=== PATIENT | female | born 1970 | race Caucasian/White ===

== ENCOUNTER 2017-08-12 18:25 | Inpatient (IN) ==
[2017-08-12] MEDS ORDERED: 0.9 % Sodium Chloride 1,000 ML IVC ONE (18:34)
[2017-08-12] MEDS ORDERED: Isovue-370 500 ML INFUS..BTL IV ONE (18:36)
[2017-08-12] MEDS ORDERED: Ondansetron 4 MG/2 ML VIAL IVP ONE (18:40)
[2017-08-12] MEDS ORDERED: *HR* FentaNYL (PF) 100 MCG/2 ML VIAL IVP ONE (18:40)
--- NOTE | 2017-08-12 18:42 | Emergency Department Note ---
Disposition Referrals: Dixon Polk MD [Primary Care Provider] - Abdominal Pain HPI - General Chief Complaint: ED Abdominal Pain Stated Complaint: Abdominal Pain Time Seen by Provider: 08/12/17 18:30 Source: patient, EMS Mode of arrival: ambulatory Limitations: no limitations Nursing Notes Reviewed: Yes Vital Signs Reviewed: Yes - History of Present Illness Pt Subjective Complaint: abdominal pain Onset (ago): hour(s) Consistency: Worsening Location: suprapubic Pain Severity: severe Pain Scale: 10 Quality: stabbing, sharp Radiation: none Migration to: no migration Improves with: nothing Worsens with: nothing Associated symptoms: Reports: fever, chills. Denies: nausea, vomiting, diarrhea , constipation, anorexia Treatments prior to arrival: none - Related Data Home Medications Medication Instructions Recorded Confirmed Aspirin 81 mg PO DAILY 06/22/15 08/07/17 Isosorbide MONOnitrate (24 HR) 30 mg PO DAILY 06/22/15 08/07/17 [Imdur] Simvastatin [Zocor] 40 mg PO HS 06/22/15 08/07/17 ALPRAZolam [Xanax 0.5 MG Tablet] 0.5 mg PO TID 01/28/16 08/07/17 Albuterol Sulfate [Proair Hfa] 2 puff IH Q4H PRN 01/28/16 08/07/17 Amitriptyline [Elavil] 25 - 50 mg PO HS 01/28/16 08/07/17 Ascorbic Acid [Vitamin C] 250 mg PO BID 01/28/16 08/07/17 Butalb/Acetaminophen/Caffeine 1 each PO Q8H PRN 01/28/16 08/07/17 [Zebutal 50-325-40 mg Capsule] Cyclobenzaprine HCl 10 mg PO TID PRN 01/28/16 08/07/17 Divalproex Sodium [Depakote] 250 mg PO BID 01/28/16 08/07/17 Docusate [Colace] 100 mg PO BID PRN 01/28/16 08/07/17 Ferrous Sulfate 325 mg PO BID 01/28/16 08/07/17 Ipratropium [ATROVENT Inhaler] 2 puff IH Q6HR PRN 01/28/16 08/07/17 Lactulose 15 gm PO DAILY PRN 01/28/16 08/07/17 Lisinopril [Zestril] 10 mg PO DAILY 01/28/16 08/07/17 Meclizine [Antivert] 25 mg PO BID PRN 01/28/16 08/07/17 Metformin HCl [Glucophage] 1,000 mg PO BID 01/28/16 08/07/17 Potassium Chloride 20 meq PO DAILY 01/28/16 08/07/17 Ranolazine [Ranexa] 500 mg PO BID 01/28/16 08/07/17 Ropinirole HCl [Requip] 0.5 - 1 mg PO HS 01/28/16 08/07/17 SUMAtriptan Succinate [Imitrex] 100 mg PO ONCE PRN 01/28/16 08/07/17 Topiramate [Topamax] 25 - 50 mg PO HS 01/28/16 08/07/17 Wheat Dextrin [Benefiber] 1 each PO DAILY PRN 01/28/16 08/07/17 Gabapentin [Neurontin] 300 mg PO TID 08/07/17 08/07/17 Ibuprofen [Motrin] 600 mg PO Q8H PRN 08/07/17 08/07/17 Loratadine [Claritin] 10 mg PO DAILY 08/07/17 08/07/17 Metoprolol [Lopressor] 12.5 mg PO BID 08/07/17 08/07/17 Omeprazole [PriLOSEC] 40 mg PO DAILY 08/07/17 08/07/17 Polyethylene Glycol 3350 [MiraLAX] 17 gm PO DAILY 08/07/17 08/07/17 Previous Rx's Medication Instructions Recorded Acetaminophen [Tylenol] 500 mg PO Q6HR PRN #20 tablet 03/23/17 Promethazine [Phenergan] 12.5 mg PO Q8HR PRN #10 tablet 03/23/17 Allergies Allergy/AdvReac Type Severity Reaction Status Date / Time losartan AdvReac Hives Verified 08/12/17 18:32 Oxycodone [From OxyContin] AdvReac Nausea Verified 08/12/17 18:32 Penicillins [PCN] AdvReac Swelling Verified 08/12/17 18:32 of the Eye Abdominal Pain PMH - Past Medical History Medical history: Reports: arthritis, diabetes, GERD, hyperlipidemia, hypertension, migraine, other Female Surgical History: Reports: appendectomy, cholecystectomy 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, other Psychiatric history: Reports: anxiety, bipolar, depression - Social History Smoking status: Current every day smoker Alcohol use: Reports: none Drug use: Reports: none Physical Exam - General Limitations: no limitations General appearance: alert Course Vital Signs Temperature 99.1 F 08/12/17 18:33 Pulse Rate 111 08/12/17 18:33 Respiratory Rate 20 08/12/17 18:33 Blood Pressure 115/78 08/12/17 18:33 O2 Sat by Pulse Oximetry 93 08/12/17 18:33 Temperature 99.1 F 08/12/17 18:33 Pulse Rate 111 08/12/17 18:33 Respiratory Rate 20 08/12/17 18:33 Blood Pressure 115/78 08/12/17 18:33 O2 Sat by Pulse Oximetry 93 08/12/17 18:33 Oxygen Delivery Oxygen Delivery Room Air
--- NOTE | 2017-08-12 18:47 | Emergency Department Note ---
Disposition Clinical Impression: Rectovaginal fistula, Abscess Abdominal pain Qualifiers: Abdominal location: lower abdomen, unspecified Qualified Code(s): R10.30 - Lower abdominal pain, unspecified Disposition: Admitted As Inpatient Condition: Fair Referrals: Dixon Polk MD [Primary Care Provider] - Forms: ED Satisfaction Letter, Work/School Release Time of Disposition: 21:44 Abdominal Pain HPI - General Chief Complaint: ED Abdominal Pain Stated Complaint: Abdominal Pain Time Seen by Provider: 08/12/17 18:30 Source: patient, EMS Mode of arrival: ambulatory Limitations: no limitations Nursing Notes Reviewed: Yes Vital Signs Reviewed: Yes - History of Present Illness HPI Narrative: Patient is a 46-year-old female who presents to [facility] ED with a chief complaint of lower abdominal pain. States her symptoms started worsening this morning when she woke up. She had a LEEP procedure done by Dr. Ibarra on 08/07/2017. Denies any nausea, vomiting. Admits to fever and chills up to a temperature of 100 degrees. Denies any chest pain, difficulty breathing , problems with urination. States she has not had a bowel movement since prior to her procedure. States she did have some mild discomfort after her initial procedure but nothing like this. Denies any foul-smelling vaginal discharge. States she still has a little bit of brown vaginal discharge. Pt Subjective Complaint: abdominal pain Onset (ago): hour(s) Consistency: Worsening Location: suprapubic Pain Severity: severe Pain Scale: 10 Quality: stabbing, sharp Migration to: no migration Improves with: nothing Worsens with: nothing Associated symptoms: Reports: fever, chills. Denies: nausea, vomiting, diarrhea , constipation, anorexia - Related Data Home Medications Medication Instructions Recorded Confirmed Aspirin 81 mg PO DAILY 06/22/15 08/07/17 Isosorbide MONOnitrate (24 HR) 30 mg PO DAILY 06/22/15 08/07/17 [Imdur] Simvastatin [Zocor] 40 mg PO HS 06/22/15 08/07/17 ALPRAZolam [Xanax 0.5 MG Tablet] 0.5 mg PO TID 01/28/16 08/07/17 Albuterol Sulfate [Proair Hfa] 2 puff IH Q4H PRN 01/28/16 08/07/17 Amitriptyline [Elavil] 25 - 50 mg PO HS 01/28/16 08/07/17 Ascorbic Acid [Vitamin C] 250 mg PO BID 01/28/16 08/07/17 Butalb/Acetaminophen/Caffeine 1 each PO Q8H PRN 01/28/16 08/07/17 [Zebutal 50-325-40 mg Capsule] Cyclobenzaprine HCl 10 mg PO TID PRN 01/28/16 08/07/17 Divalproex Sodium [Depakote] 250 mg PO BID 01/28/16 08/07/17 Docusate [Colace] 100 mg PO BID PRN 01/28/16 08/07/17 Ferrous Sulfate 325 mg PO BID 01/28/16 08/07/17 Ipratropium [ATROVENT Inhaler] 2 puff IH Q6HR PRN 01/28/16 08/07/17 Lactulose 15 gm PO DAILY PRN 01/28/16 08/07/17 Lisinopril [Zestril] 10 mg PO DAILY 01/28/16 08/07/17 Meclizine [Antivert] 25 mg PO BID PRN 01/28/16 08/07/17 Metformin HCl [Glucophage] 1,000 mg PO BID 01/28/16 08/07/17 Potassium Chloride 20 meq PO DAILY 01/28/16 08/07/17 Ranolazine [Ranexa] 500 mg PO BID 01/28/16 08/07/17 Ropinirole HCl [Requip] 0.5 - 1 mg PO HS 01/28/16 08/07/17 SUMAtriptan Succinate [Imitrex] 100 mg PO ONCE PRN 01/28/16 08/07/17 Topiramate [Topamax] 25 - 50 mg PO HS 01/28/16 08/07/17 Wheat Dextrin [Benefiber] 1 each PO DAILY PRN 01/28/16 08/07/17 Gabapentin [Neurontin] 300 mg PO TID 08/07/17 08/07/17 Ibuprofen [Motrin] 600 mg PO Q8H PRN 08/07/17 08/07/17 Loratadine [Claritin] 10 mg PO DAILY 08/07/17 08/07/17 Metoprolol [Lopressor] 12.5 mg PO BID 08/07/17 08/07/17 Omeprazole [PriLOSEC] 40 mg PO DAILY 08/07/17 08/07/17 Polyethylene Glycol 3350 [MiraLAX] 17 gm PO DAILY 08/07/17 08/07/17 Previous Rx's Medication Instructions Recorded Acetaminophen [Tylenol] 500 mg PO Q6HR PRN #20 tablet 03/23/17 Promethazine [Phenergan] 12.5 mg PO Q8HR PRN #10 tablet 03/23/17 Allergies Allergy/AdvReac Type Severity Reaction Status Date / Time losartan AdvReac Hives Verified 08/12/17 18:32 Oxycodone [From OxyContin] AdvReac Nausea Verified 08/12/17 18:32 Penicillins [PCN] AdvReac Swelling Verified 08/12/17 18:32 of the Eye All systems ED: reviewed and negative except as stated. 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 ligation, other Psychiatric history: Reports: anxiety, bipolar, depression - Social History Smoking status: Current every day smoker Alcohol use: Reports: none Drug use: Reports: none Physical Exam - General Limitations: no limitations General appearance: alert - Head Head exam: atraumatic, normocephalic, normal inspection - Eye Eye exam: Present: normal appearance, EOMI - ENT ENT exam: normal exam, normal oropharynx - Neck Neck exam: Present: normal inspection, full ROM, trachea midline - Chest Chest inspection: Present: normal inspection, symmetric chest wall rise - Respiratory Respiratory exam: Present: normal lung sounds bilaterally - Cardiovascular Cardiovascular exam: Present: normal rhythm, tachycardia - Abdominal Exam Abdominal exam: Present: soft, tenderness, normal bowel sounds. Absent: distention, guarding, rebound, rigidity Abdominal tenderness: Present: suprapubic, diffuse, severe - Extremities Exam Extremities exam: Present: normal inspection, full ROM. Absent: tenderness, pedal edema - Back Exam Back exam: Present: normal inspection, full ROM. Absent: tenderness - Neurological Exam Neurological exam: Present: alert, oriented X3 - Psychiatric Psychiatric exam: Present: normal affect, normal mood - Skin Skin exam: Present: warm, dry, intact, normal color Course Course Narrative: Patient seen and examined. Lower abdominal pain status post having a LEEP procedure done by Dr. Ibarra on 08/07/2017. Patient woke up this morning with severe worsening abdominal pain and low-grade fever. Lab work, CT with IV contrast, pelvic exam along with vaginal cultures ordered. - Reevaluation(s) Reevaluation #1: Labwork shows a leukocytosis of 18. With her being tachycardic and with a fever , we will go ahead and start him on antibiotics including Cipro, Flagyl, clindamycin. Pelvic exam was done which showed black/brownish fluid. CT of the abdomen and pelvis showed signs of possible rectal vaginal fistula, possible abscess. I discussed these findings with the on-call DAY CARE ASSISTANT surgical orderly Cheryl Rod who discussed this with the DAY CARE ASSISTANT physician Dr. Rodriguez who states they cannot take care of of rectovaginal fistulas and this needs to go north to the [facility]. I discussed with the transfer center. Time: 21:02 Reevaluation #2: We decided to discuss with our surgery soil conservation aide to see if they would be able to take care of the rectovaginal fistula. The surgeon Dr. Castellano was consulted and states she will admit the patient under her service to continue antibiotics until the infection calls down and she is able to do surgery. I had discussed with the radiologist to clarify the CT scan. States there is extremely poor delineation between the rectum and vaginal solitario and there is a lot of inflammation surrounding the entire area. States this is a grossly abnormal exam and he suspects there will need some sort of intervention. I also discussed these results with Dr. Castellano. Time: 21:47 Vital Signs Temperature 99.1 F 08/12/17 18:33 Pulse Rate 111 08/12/17 18:33 Respiratory Rate 20 08/12/17 18:33 Blood Pressure 115/78 08/12/17 18:33 O2 Sat by Pulse Oximetry 93 08/12/17 18:33 Temperature 101.9 F H 08/12/17 19:52 Pulse Rate 103 08/12/17 19:52 Respiratory Rate 20 08/12/17 19:52 Blood Pressure 132/76 08/12/17 19:52 O2 Sat by Pulse Oximetry 92 08/12/17 19:52 Oxygen Delivery Oxygen Delivery Room Air Abdominal Pain - MDM Narrative Medical decision making narrative: This documentation is done with the assistance of Dragon dictation. Despite efforts made to ensure accuracy, there may be inaccuracies in egg candler or spelling and typographical errors. I examined this patient and my medical decision-making was reviewed with the Resident Physician. I agree with the documented findings, disposition and treatment plan as described except to the extent set forth below. Patient seen and evaluated by Dr. Barfield and myself, I agree with her evaluation management plan , supervise care the patient outstay. Patient's a LEEP procedure done here by Dr. Ibarra plan this is been done in the last week now. Having some episodes of some discharge pain and possible fever. N do a pelvic on her see if there is any lesions or bleeding and then we will consider further workup along with consult with OB. Abdomen/Pelvis CT 08/12/17 18:36 IMPRESSION: Abnormal inflammatory process within the pelvis. Rectovaginal fistula is suspected. Developing abscess is also suspected. Underlying malignancy is not excluded. D/ / 08/12/2017 20:40:28 Cristopher Zapata MD / alexandrea Interpreting Provider: Cristopher Zapata MD 2043 hrs.: Speaking with DAY CARE ASSISTANT. Patient will need admission with their consult and possible surgery. Started on IV antibiotics here. Patient's agreeing to this plan. 2049 hrs.: Spoke with DAY CARE ASSISTANT did not think this is beyond their capabilities to handle this here and prefer her to be transferred. Were going to talk to the patient about where she might want to be transferred to in [place] and then OB/ EMPLOYEE REPRESENTATIVE's clinic and speak with her also. - Medical Records Medical records reviewed: Yes I reviewed the patient's medical records. - Lab Data Lab results reviewed: Yes I reviewed the patient's lab results. Result diagrams: 08/12/17 18:50 08/12/17 18:50 Lab Results 08/12/17 08/12/17 08/12/17 Range/Units 18:50 18:50 18:50 WBC 18.2 H (4.3-11.1) K/mcL RBC 3.84 (3.82-4.97) M/mcL Hgb 12.0 (11.5-15.4) g/dL Hct 36.0 (35.3-44.9) % MCV 93.8 (83.0-100.0) fL MCH 31.3 (28.0-33.3) pg MCHC 33.3 (31.6-35.5) g/dL RDW 14.8 H (11.5-14.5) % Plt Count 259 (140-400) K/mcL MPV 10.3 (9.4-12.4) fL Immature Gran % 1.4 (0-4) % Seg Neutrophils % 72.4 % Lymphocytes % 19.8 % Monocytes % 5.7 % Eosinophils % 0.5 % Basophils % 0.2 % Neutrophils # 13.2 H (1.6-8.9) K/mcL Lymphocytes # 3.6 (0.6-4.6) K/mcL Monocytes # 1.0 (0.0-1.3) K/mcL Eosinophils # 0.1 (0.0-0.6) K/mcL Basophils # 0.0 (0.0-0.2) K/mcL Nucleated RBCs/100 WBC 0.1 H (0) /100 WBC Sodium 129 L (136-145) mEq/L Potassium 4.1 (3.5-5.1) mEq/L Chloride 98 (98-107) mEq/L Carbon Dioxide 25 (23-29) mEq/L BUN 6 (6-20) mg/dL Creatinine 0.86 (0.60-1.20) mg/dL Est GFR ( Amer) > 60 (> 60) Est GFR (Non-Af Amer) > 60 (> 60) BUN/Creatinine Ratio 7 (6-26) Glucose 184 H (70-105) mg/dL Calculated Osmolality 270 L (280-300) Lactic Acid 2.0 (0.5-2.2) mmol/L Calcium 9.1 (8.6-10.3) mg/dL Total Bilirubin 0.5 (0.3-1.0) mg/dL Direct Bilirubin 0.2 (0.0-0.2) mg/dL Indirect Bilirubin 0.3 (0.0-1.2) mg/dL AST 30 (13-39) Units/L ALT 27 (7-52) Units/L Alkaline Phosphatase 143 H (34-104) Units/L Serum Total Protein 6.7 (6.4-8.9) g/dL Albumin 3.6 (3.5-5.7) g/dL Globulin 3.1 (2.4-3.5) g/dL Albumin/Globulin Ratio 1.2 (1.1-2.2) Urine Color (Yellow) Urine Clarity (Clear) Urine pH (5.0-8.0) pH Units Ur Specific [place] (1.010-1.025) Urine Protein (Neg-Trace) mg/dL Urine Glucose (UA) (Normal) mg/dL Urine Ketones (Negative) mg/dL Urine Blood (Negative) Urine Nitrite (Negative) Urine Bilirubin (Negative) Urine Urobilinogen (Normal) mg/dL Ur Leukocyte Esterase (Negative) Urine Microscopic RBC (0-3) per hpf Urine Microscopic WBC (0-3) per hpf Ur Squamous Epith Cells (None-Few) per lpf Urine Bacteria (None-Few) per hpf Hyaline Casts (None-Few) per lpf Ur Culture Indicated? (NO) Urine Test (Negative) Liz species DNA (Not Detect) Gardnerella DNA Probe (Not Detect) Trichomonas DNA Probe (Not Detect) 08/12/17 08/12/17 08/12/17 Range/Units 19:25 19:26 19:48 WBC (4.3-11.1) K/mcL RBC (3.82-4.97) M/mcL Hgb (11.5-15.4) g/dL Hct (35.3-44.9) % MCV (83.0-100.0) fL MCH (28.0-33.3) pg MCHC (31.6-35.5) g/dL RDW (11.5-14.5) % Plt Count (140-400) K/mcL MPV (9.4-12.4) fL Immature Gran % (0-4) % Seg Neutrophils % % Lymphocytes % % Monocytes % % Eosinophils % % Basophils % % Neutrophils # (1.6-8.9) K/mcL Lymphocytes # (0.6-4.6) K/mcL Monocytes # (0.0-1.3) K/mcL Eosinophils # (0.0-0.6) K/mcL Basophils # (0.0-0.2) K/mcL Nucleated RBCs/100 WBC (0) /100 WBC Sodium (136-145) mEq/L Potassium (3.5-5.1) mEq/L Chloride (98-107) mEq/L Carbon Dioxide (23-29) mEq/L BUN (6-20) mg/dL Creatinine (0.60-1.20) mg/dL Est GFR ( Amer) (> 60) Est GFR (Non-Af Amer) (> 60) BUN/Creatinine Ratio (6-26) Glucose (70-105) mg/dL Calculated Osmolality (280-300) Lactic Acid (0.5-2.2) mmol/L Calcium (8.6-10.3) mg/dL Total Bilirubin (0.3-1.0) mg/dL Direct Bilirubin (0.0-0.2) mg/dL Indirect Bilirubin (0.0-1.2) mg/dL AST (13-39) Units/L ALT (7-52) Units/L Alkaline Phosphatase (34-104) Units/L Serum Total Protein (6.4-8.9) g/dL Albumin (3.5-5.7) g/dL Globulin (2.4-3.5) g/dL Albumin/Globulin Ratio (1.1-2.2) Urine Color Dark Yellow (Yellow) Urine Clarity Cloudy A (Clear) Urine pH 7.0 (5.0-8.0) pH Units Ur Specific [place] 1.013 (1.010-1.025) Urine Protein Trace (Neg-Trace) mg/dL Urine Glucose (UA) Normal (Normal) mg/dL Urine Ketones Negative (Negative) mg/dL Urine Blood Small H (Negative) Urine Nitrite Negative (Negative) Urine Bilirubin Negative (Negative) Urine Urobilinogen 4.0 H (Normal) mg/dL Ur Leukocyte Esterase Large H (Negative) Urine Microscopic RBC 3-5 H (0-3) per hpf Urine Microscopic WBC TNTC H (0-3) per hpf Ur Squamous Epith Cells Many H (None-Few) per lpf Urine Bacteria Many H (None-Few) per hpf Hyaline Casts None Seen (None-Few) per lpf Ur Culture Indicated? NO. A (NO) Urine Test Negative (Negative) Liz species DNA Not Detected (Not Detect) Gardnerella DNA Probe DETECTED A (Not Detect) Trichomonas DNA Probe Not Detected (Not Detect) - Radiology Data Radiology results reviewed: Yes I reviewed the patient's radiology results. Abdomen/Pelvis CT 08/12/17 18:36
[2017-08-12 19:06] LABS: Basophils % 0.2 %; Eosinophils # 0.1 K/mcL (0.0-0.6); Eosinophils % 0.5 %; Immature Granulocytes % 1.4 % (0-4); Lymphocytes # 3.6 K/mcL (0.6-4.6); Lymphocytes % 19.8 %; Mean Corpuscular HGB Conc 33.3 g/dL (31.6-35.5); Mean Corpuscular Hemoglobin 31.3 pg (28.0-33.3); Mean Corpuscular Volume 93.8 fL (83.0-100.0); Mean Platelet Volume 10.3 fL (9.4-12.4); Monocytes % 5.7 %; Neutrophils # 13.2 K/mcL (1.6-8.9); Nucleated Red Blood Cells 0.1 /100 WBC (0); Platelet Count 259 K/mcL (140-400); Red Blood Count 3.84 M/mcL (3.82-4.97); Red Cell Distribution Width 14.8 % (11.5-14.5); Segmented Neutrophils % 72.4 %
[2017-08-12 19:23] LABS: Alanine Aminotransferase 27 Units/L (7-52); Albumin 3.6 g/dL (3.5-5.7); Albumin/Globulin Ratio 1.2 (1.1-2.2); Alkaline Phosphatase 143 Units/L (34-104); Aspartate Amino Transferase 30 Units/L (13-39); BUN/Creatinine Ratio 7 (6-26); Bilirubin,Direct 0.2 mg/dL (0.0-0.2); Bilirubin,Indirect 0.3 mg/dL (0.0-1.2); Bilirubin,Total 0.5 mg/dL (0.3-1.0); Blood Urea Nitrogen 6 mg/dL (6-20); Calcium 9.1 mg/dL (8.6-10.3); Carbon Dioxide 25 mEq/L (23-29); Chloride 98 mEq/L (98-107); Globulin 3.1 g/dL (2.4-3.5); Glucose 184 mg/dL (70-105); Osmolality,Calculated 270 (280-300); Potassium 4.1 mEq/L (3.5-5.1); Sodium 129 mEq/L (136-145); Total Protein 6.7 g/dL (6.4-8.9); eGFR For African Americans > 60 (> 60); eGFR For Non-African Americans > 60 (> 60)
[2017-08-12 19:39] LABS: Bilirubin,Urine Negative (Negative); Blood,Urine Small (Negative); Clarity,Urine Cloudy (Clear); Color,Urine Dark Yellow (Yellow); Glucose,Urine (UA) Normal (Normal); Ketones,Urine Negative (Negative); Leukocyte Esterase,Urine Large (Negative); Nitrite,Urine Negative (Negative); Protein,Urine Trace mg/dL (Neg-Trace); Specific Gravity,Urine 1.013 (1.010-1.025)
[2017-08-12 19:40] LABS: Bacteria,Urine Many per hpf (None-Few); Hyaline Casts,Urine None Seen per lpf (None-Few); Squamous Epithelial Cell,Urine Many per lpf (None-Few); WBC,Urine TNTC per hpf (0-3)
[2017-08-12] MEDS ORDERED: Clindamycin 900 MG/50 ML 900 MG/50 ML IV.SOLN IVPB ONE (19:53)
[2017-08-12] MEDS ORDERED: MetroNIDAZOLE 500 MG/100 ML 500 MG/100 ML BAG IVPB ONE (19:53)
[2017-08-12] MEDS ORDERED: Acetaminophen 325 MG TABLET PO ONE (19:54)
[2017-08-12 20:52] LABS: Candida DNA Not Detected (Not Detect); Gardnerella DNA ***DETECTED*** (Not Detect); Trichomonas DNA Not Detected (Not Detect)
[2017-08-12] MEDS ORDERED: *HR* HYDROmorphone (PF) 1 MG/ML SYRINGE IVP ONE (21:57)
[2017-08-12] MEDS ORDERED: *HR* Promethazine 25 MG/ML VIAL IVP PRN (23:04)
[2017-08-12] MEDS ORDERED: *HR* FentaNYL (PF) 100 MCG/2 ML VIAL IVP PRN (23:07)
[2017-08-12] MEDS: 0.9 % Sodium Chloride 1,000 ML IVC SCH (23:50)
[2017-08-12] MEDS: Divalproex (12 HR) 250 MG TABLET PO SCH (23:55)
[2017-08-12] MEDS: Gabapentin 300 MG CAPSULE PO SCH (23:55)
[2017-08-12] MEDS: *HR* Metoprolol 5 MG/5 ML VIAL IVP SCH (23:59)
[2017-08-13] MEDS: Insulin LISPRO 300 UNITS/3 ML VIAL SQ SCH ×4 (00:26→17:57)
[2017-08-13] MEDS: Acetaminophen IV 1,000 MG/100 ML INFUS..BTL IVPB SCH ×4 (01:34→20:15)
[2017-08-13] MEDS: MetroNIDAZOLE 500 MG/100 ML 500 MG/100 ML BAG IVPB SCH ×3 (03:49→20:10)
[2017-08-13] MEDS: MORPHINE SUL Oral CONC 10 MG/0.5 ML ORAL.SYG SL PRN ×2 (04:24→10:56)
[2017-08-13 04:31] LABS: Basophils # 0.1 K/mcL (0.0-0.2); Basophils % 0.3 %; Eosinophils # 0.1 K/mcL (0.0-0.6); Eosinophils % 0.6 %; Hematocrit 31.9 % (35.3-44.9); Immature Granulocytes % 1.7 % (0-4); Lymphocytes # 3.2 K/mcL (0.6-4.6); Mean Corpuscular HGB Conc 32.3 g/dL (31.6-35.5); Mean Corpuscular Hemoglobin 30.5 pg (28.0-33.3); Mean Corpuscular Volume 94.4 fL (83.0-100.0); Mean Platelet Volume 10.1 fL (9.4-12.4); Monocytes # 0.9 K/mcL (0.0-1.3); Monocytes % 6.2 %; Platelet Count 228 K/mcL (140-400); Red Blood Count 3.38 M/mcL (3.82-4.97); Red Cell Distribution Width 15.2 % (11.5-14.5); Segmented Neutrophils % 69.2 %
[2017-08-13 04:32] LABS: Hemoglobin 10.3 g/dL (11.5-15.4)
[2017-08-13 04:54] LABS: BUN/Creatinine Ratio 7 (6-26); Blood Urea Nitrogen 6 mg/dL (6-20); Calcium 8.3 mg/dL (8.6-10.3); Carbon Dioxide 25 mEq/L (23-29); Chloride 104 mEq/L (98-107); Glucose 134 mg/dL (70-105); Osmolality,Calculated 278 (280-300); Potassium 4.2 mEq/L (3.5-5.1); Sodium 134 mEq/L (136-145); eGFR For African Americans > 60 (> 60); eGFR For Non-African Americans > 60 (> 60)
[2017-08-13] MEDS: *HR* Metoprolol 5 MG/5 ML VIAL IVP SCH ×3 (05:47→17:57)
[2017-08-13] MEDS: Pantoprazole 40 MG VIAL IVP SCH (05:47)
[2017-08-13] MEDS: 0.9 % Sodium Chloride 1,000 ML IVC SCH ×2 (08:14→18:01)
[2017-08-13] MEDS: Gabapentin 300 MG CAPSULE PO SCH ×3 (08:19→20:10)
[2017-08-13] MEDS: Divalproex (12 HR) 250 MG TABLET PO SCH ×2 (08:19→20:10)
[2017-08-13] MEDS ORDERED: Ondansetron 4 MG/2 ML VIAL IVP PRN (11:49)
[2017-08-13] MEDS ORDERED: Naloxone 0.4 MG/ML INJ IVP PRN (11:49)
--- NOTE | 2017-08-13 11:56 | General Surg History&Physical ---
Date of Encounter: 08/13/17 Time of Encounter: 10:50 Assessment and Plan (1) Colitis, acute Current Visit: Yes Status: Acute The assessment and plan as outlined above was discussed with the patient and/or family members who expressed understanding and agreement. All questions were answered. CT scan personally reviewed by myself would like to get this patient over her acute episode of colitis with conservative therapy, continue cipro/flagyl wbc decreased this am serial abdominal exams ivf hydration prn pain control gi/dvt prophylaxis (2) Gardnerella vaginitis Current Visit: Yes Status: Acute The assessment and plan as outlined above was discussed with the patient and/or family members who expressed understanding and agreement. All questions were answered. discussed with chief dog license inspector nurse independent trader, matt mckinley (3) Diabetes type 2, controlled Current Visit: Yes Status: Chronic The assessment and plan as outlined above was discussed with the patient and/or family members who expressed understanding and agreement. All questions were answered. controlled with SSI, continue mbs checks Qualifiers: Diabetes mellitus classics professor insulin use: without shelter use Qualified Code(s): E11.9 - Type 2 diabetes mellitus without complications (4) HTN (hypertension) Current Visit: Yes Status: Chronic The assessment and plan as outlined above was discussed with the patient and/or family members who expressed understanding and agreement. All questions were answered. scheduled lopressor IV prn hydralazine Qualifiers: Hypertension type: essential hypertension Qualified Code(s): I10 - Essential (primary) hypertension (5) HLD (hyperlipidemia) Current Visit: Yes Status: Chronic The assessment and plan as outlined above was discussed with the patient and/or family members who expressed understanding and agreement. All questions were answered. hold po meds currently Qualifiers: Hyperlipidemia type: unspecified Qualified Code(s): E78.5 - Hyperlipidemia , unspecified (6) Migraines Current Visit: Yes Status: Acute The assessment and plan as outlined above was discussed with the patient and/or family members who expressed understanding and agreement. All questions were answered. continue depakote patient level is low but is not used to treat seizures Qualifiers: Migraine type: unspecified Status migrainosus presence: without status migrainosus Intractability: not intractable Qualified Code(s): G43.909 - Migraine, unspecified, not intractable, without status migrainosus (7) Bipolar 1 disorder Current Visit: Yes Status: Acute The assessment and plan as outlined above was discussed with the patient and/or family members who expressed understanding and agreement. All questions were answered. continue depakote History of Present Illness Chief complaint: abdominal pain HPI: Ms. Rae is a 46 year old female who underwent a leep procedure this past monday. She went home and was having pelvic pain which she expected and it appears to at one point gotten a little better. Monday she began having sharp intermittent pelvic pain. She denies nausea or emesis. She denies diarrhea and has not had a bm since last monday (a week ago). She denies passing flatus but cant tell me the last time she did. She had a tactile fever before presenting to the ED. She has had small amounts of brown vaginal drainage since her leep procedure. patient is on depakote but cannot tell me why, states has never had a seizure. She presented to the ED with abdominal pain. CT scan abdomen and pelvis showed "[place] 4d Abnormal appearance of the distal sigmoid colon with marked wall thickening and surrounding inflammatory changes. These extend into the rectal region. The vaginal cavity is inseparable from the rectum. Air is seen within the vaginal cavity with debris. Increased fluid is seen within the cul-de-sac. Subtle peripheral enhancement suggests a developing abscess. Rectovaginal fistula is suspected." WBC 18.5. Cr wnl. Vaginal exam with cultures done by ED, Gardnerella positive. Past Med Surg Social Fam HX - Past Medical History Source: patient Medical history: arthritis, diabetes, GERD, hyperlipidemia, hypertension, migraine, other Additional medical history: depression,baretts esophagus,schinic sinusitis, constipation,osteoarthritis,internal hemorrhoids,restless leg syndrome,dysphagia ,nausea,chronic pelvic pain,left lower quadrant pain,abnormal uterine bleeding, degenerative joint disease,dyslipedemia,iron deficiency,colonic polyps, bilateral carpal tunnel,borderline diabetes, diabetes type II, heart cath no stents Psychiatric history: anxiety, bipolar, depression - Past Surgical History Surgical History: appendectomy (open), cholecystectomy (lap), other (LEEP, tubal ligation) - Social History Smoking Status: Current every day smoker Packs per day: .5 Smokeless Tobacco Status: No Alcohol use: none Drug use: none - Family History Grandmother History Unknown: Yes Medications and Allergies Aspirin 81 mg PO DAILY 06/22/15 [History] Isosorbide MONOnitrate (24 HR) [Imdur] 30 mg PO DAILY 06/22/15 [History] Simvastatin [Zocor] 40 mg PO HS 06/22/15 [History] Albuterol Sulfate [Proair Hfa] 2 puff IH Q4H PRN 01/28/16 [History] Amitriptyline [Elavil] 25 - 50 mg PO HS 01/28/16 [History] Ascorbic Acid [Vitamin C] 250 mg PO BID 01/28/16 [History] Butalb/Acetaminophen/Caffeine [Zebutal 50-325-40 mg Capsule] 1 each PO Q8H PRN 01/28/16 [History] Cyclobenzaprine HCl 10 mg PO TID PRN 01/28/16 [History] Divalproex Sodium [Depakote] 250 mg PO BID 01/28/16 [History] Docusate [Colace] 100 mg PO BID PRN 01/28/16 [History] Ferrous Sulfate 325 mg PO BID 01/28/16 [History] Ipratropium [ATROVENT Inhaler] 2 puff IH Q6HR PRN 01/28/16 [History] Lactulose 15 gm PO DAILY PRN 01/28/16 [History] Lisinopril [Zestril] 10 mg PO DAILY 01/28/16 [History] Meclizine [Antivert] 25 mg PO BID PRN 01/28/16 [History] Metformin HCl [Glucophage] 1,000 mg PO BID 01/28/16 [History] Potassium Chloride 20 meq PO DAILY 01/28/16 [History] Ranolazine [Ranexa] 500 mg PO BID 01/28/16 [History] Ropinirole HCl [Requip] 0.5 - 1 mg PO HS 01/28/16 [History] SUMAtriptan Succinate [Imitrex] 100 mg PO ONCE PRN 01/28/16 [History] Topiramate [Topamax] 25 - 50 mg PO HS 01/28/16 [History] Wheat Dextrin [Benefiber] 1 each PO DAILY PRN 01/28/16 [History] Acetaminophen [Tylenol] 500 mg PO Q6HR PRN #20 tablet 03/23/17 [Rx] Promethazine [Phenergan] 12.5 mg PO Q8HR PRN #10 tablet 03/23/17 [Rx] Gabapentin [Neurontin] 300 mg PO TID 08/07/17 [History] Ibuprofen [Motrin] 600 mg PO Q8H PRN 08/07/17 [History] Loratadine [Claritin] 10 mg PO DAILY 08/07/17 [History] Metoprolol [Lopressor] 12.5 mg PO BID 08/07/17 [History] Omeprazole [PriLOSEC] 40 mg PO DAILY 08/07/17 [History] Polyethylene Glycol 3350 [MiraLAX] 17 gm PO DAILY 08/07/17 [History] 3 Allergy/AdvReac Type Severity Reaction Status Date / Time losartan AdvReac Hives Verified 08/12/17 18:32 Oxycodone [From OxyContin] AdvReac Nausea Verified 08/12/17 18:32 Penicillins [PCN] AdvReac Swelling Verified 08/12/17 18:32 of the Eye Review of Systems All systems PM: reviewed and no additional remarkable complaints except as stated All systems PM: The remainder of the systems were reviewed and are negative General Surgery Exam Initial Vital Signs Temp Pulse Resp BP Pulse Ox 99.1 F 111 20 115/78 93 08/12/17 18:33 08/12/17 18:33 08/12/17 18:33 08/12/17 18:33 08/12/17 18:33 - General physical appearance well developed, well nourished, no distress - Eyes PERRL, normal ocular movement - ENT normal mucosa, normocephalic - Neck trachea midline - Respiratory normal expansion, clear to auscultation - Cardiovascular Cardiovascular exam: Present: RRR - Abdomen Abdomen general surgery: Present: soft, tender (left sided and pelvic). Absent : bowel sounds present, distended, guarding, rebound - Integumentary Integumentary general surgery: Present: warm and dry, no abnormal pigmentation - Neurologic Present: CN 2-12 grossly intact - Musculoskeletal Present: normal posture - Psychiatric Psychiatric general surgery: Present: A&Ox3, speech is normal Results - Labs 08/13/17 04:15 08/13/17 04:15 Abnormal lab results WBC 14.5 K/mcL (4.3-11.1) H 08/13/17 04:15 RBC 3.38 M/mcL (3.82-4.97) L 08/13/17 04:15 Hgb 10.3 g/dL (11.5-15.4) L D 08/13/17 04:15 Hct 31.9 % (35.3-44.9) L 08/13/17 04:15 RDW 15.2 % (11.5-14.5) H 08/13/17 04:15 Neutrophils # 10.0 K/mcL (1.6-8.9) H 08/13/17 04:15 Nucleated RBCs/100 WBC 0.1 /100 WBC (0) H 08/12/17 18:50 Sodium 134 mEq/L (136-145) L 08/13/17 04:15 Glucose 134 mg/dL (70-105) H 08/13/17 04:15 POC Glucose 123 mg/dL (70-99) H 08/13/17 11:08 Calculated Osmolality 278 (280-300) L 08/13/17 04:15 Calcium 8.3 mg/dL (8.6-10.3) L 08/13/17 04:15 Alkaline Phosphatase 143 Units/L (34-104) H 08/12/17 18:50 Urine Clarity Cloudy (Clear) A 08/12/17 19:26 Urine Blood Small (Negative) H 08/12/17 19:26 Urine Urobilinogen 4.0 mg/dL (Normal) H 08/12/17 19:26 Ur Leukocyte Esterase Large (Negative) H 08/12/17 19:26 Urine Microscopic RBC 3-5 per hpf (0-3) H 08/12/17 19:26 Urine Microscopic WBC TNTC per hpf (0-3) H 08/12/17 19:26 Ur Squamous Epith Cells Many per lpf (None-Few) H 08/12/17 19:26 Urine Bacteria Many per hpf (None-Few) H 08/12/17 19:26 Ur Culture Indicated? NO. (NO) A 08/12/17 19:26 Valproic Acid 24 mcg/mL (50-100) L 08/13/17 04:15 Gardnerella DNA Probe DETECTED (Not Detect) A 08/12/17 19:48 Diabetes panel 08/13/17 Range/Units 04:15 Sodium 134 L (136-145) mEq/L Potassium 4.2 (3.5-5.1) mEq/L Chloride 104 (98-107) mEq/L Carbon Dioxide 25 (23-29) mEq/L BUN 6 (6-20) mg/dL Creatinine 0.84 (0.60-1.20) mg/dL Glucose 134 H (70-105) mg/dL Calcium 8.3 L (8.6-10.3) mg/dL Calcium panel 08/13/17 Range/Units 04:15 Calcium 8.3 L (8.6-10.3) mg/dL Pituitary panel 08/13/17 Range/Units 04:15 Sodium 134 L (136-145) mEq/L Potassium 4.2 (3.5-5.1) mEq/L Chloride 104 (98-107) mEq/L Carbon Dioxide 25 (23-29) mEq/L BUN 6 (6-20) mg/dL Creatinine 0.84 (0.60-1.20) mg/dL Glucose 134 H (70-105) mg/dL Calcium 8.3 L (8.6-10.3) mg/dL Adrenal panel 08/13/17 Range/Units 04:15 Sodium 134 L (136-145) mEq/L Potassium 4.2 (3.5-5.1) mEq/L Chloride 104 (98-107) mEq/L Carbon Dioxide 25 (23-29) mEq/L BUN 6 (6-20) mg/dL Creatinine 0.84 (0.60-1.20) mg/dL Glucose 134 H (70-105) mg/dL Calcium 8.3 L (8.6-10.3) mg/dL All other labs normal. - Imaging CT scan - abdomen: report reviewed, image reviewed CT scan - pelvis: report reviewed, image reviewed
[2017-08-13] MEDS: Ranolazine 500 MG TAB.ER.12H PO SCH (20:09)
[2017-08-13] MEDS: rOPINIRole 0.25 MG TABLET PO SCH (20:10)
[2017-08-13] MEDS: Topiramate 25 MG TABLET PO SCH (20:10)
[2017-08-14] MEDS: Insulin LISPRO 300 UNITS/3 ML VIAL SQ SCH ×4 (00:01→22:57)
[2017-08-14] MEDS: *HR* Metoprolol 5 MG/5 ML VIAL IVP SCH ×4 (00:02→16:22)
[2017-08-14] MEDS: Acetaminophen IV 1,000 MG/100 ML INFUS..BTL IVPB SCH ×4 (01:22→21:13)
[2017-08-14] MEDS: MetroNIDAZOLE 500 MG/100 ML 500 MG/100 ML BAG IVPB SCH ×3 (04:01→21:12)
[2017-08-14] MEDS: 0.9 % Sodium Chloride 1,000 ML IVC SCH ×3 (04:02→21:18)
[2017-08-14] MEDS: Pantoprazole 40 MG VIAL IVP SCH (05:57)
[2017-08-14] MEDS: MORPHINE SUL Oral CONC 10 MG/0.5 ML ORAL.SYG SL PRN (06:47)
[2017-08-14 06:51] LABS: Basophils % 0.3 %; Eosinophils # 0.1 K/mcL (0.0-0.6); Eosinophils % 1.1 %; Hematocrit 32.2 % (35.3-44.9); Hemoglobin 10.4 g/dL (11.5-15.4); Immature Granulocytes % 1.8 % (0-4); Lymphocytes # 2.1 K/mcL (0.6-4.6); Lymphocytes % 17.5 %; Mean Corpuscular HGB Conc 32.3 g/dL (31.6-35.5); Mean Corpuscular Hemoglobin 31.6 pg (28.0-33.3); Mean Corpuscular Volume 97.9 fL (83.0-100.0); Mean Platelet Volume 10.1 fL (9.4-12.4); Monocytes # 0.7 K/mcL (0.0-1.3); Neutrophils # 8.8 K/mcL (1.6-8.9); Platelet Count 222 K/mcL (140-400); Red Blood Count 3.29 M/mcL (3.82-4.97); Red Cell Distribution Width 15.3 % (11.5-14.5); Segmented Neutrophils % 73.3 %
[2017-08-14 07:11] LABS: BUN/Creatinine Ratio 7 (6-26); Blood Urea Nitrogen 5 mg/dL (6-20); Calcium 8.5 mg/dL (8.6-10.3); Carbon Dioxide 25 mEq/L (23-29); Chloride 105 mEq/L (98-107); Glucose 104 mg/dL (70-105); Magnesium 1.9 mg/dL (1.6-2.6); Osmolality,Calculated 278 (280-300); Phosphorous 3.3 mg/dL (2.7-4.5); Potassium 4.1 mEq/L (3.5-5.1); Sodium 135 mEq/L (136-145); eGFR For African Americans > 60 (> 60); eGFR For Non-African Americans > 60 (> 60)
[2017-08-14] MEDS: Divalproex (12 HR) 250 MG TABLET PO SCH ×2 (07:57→21:14)
[2017-08-14] MEDS: Ranolazine 500 MG TAB.ER.12H PO SCH ×2 (07:57→21:13)
[2017-08-14] MEDS: Gabapentin 300 MG CAPSULE PO SCH ×3 (07:57→21:13)
[2017-08-14] MEDS: Isosorbide MONOnitrate (24 HR) 30 MG TAB.ER.24H PO SCH (07:58)
--- NOTE | 2017-08-14 10:40 | General Surgery Progress Note ---
<Ruba Meyers Jose Alfredo - Last Filed: 08/14/17 10:34> Date of Encounter: 08/14/17 Time of Encounter: 10:20 - Assessment and Plan (1) Colitis, acute Current Visit: Yes Status: Acute Continue with conservative measures: Advance to clear liquids today Continue Cipro and Flagyl IV fluids Supportive care and pain control- morphine decreased to 5mg Serial abdominal exams Consider repeat CT scan of the abdomen/pelvis in the next 24-48 hours Incentive Spirometer every 1 hour while awake Ambulate hallways TID PPI therapy daily Repeat am labs- CBC, BMP (2) Gardnerella vaginitis Current Visit: Yes Status: Acute Continue Flagyl (3) Diabetes type 2, controlled Current Visit: Yes Status: Chronic Controlled Continue to monitor Will add metformin back with advancement of diet Qualifiers: 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 marine terminal use Qualified Code(s): E11.9 - Type 2 diabetes mellitus without complications (4) HTN (hypertension) Current Visit: Yes Status: Chronic Controlled Continue current medication regimen Qualifiers: Hypertension type: essential hypertension Qualified Code(s): I10 - Essential (primary) hypertension (5) HLD (hyperlipidemia) Current Visit: Yes Status: Chronic Qualifiers: Hyperlipidemia type: unspecified Qualified Code(s): E78.5 - Hyperlipidemia , unspecified (6) Migraines Current Visit: Yes Status: Chronic Continue home medication regimen Qualifiers: Migraine type: unspecified Status migrainosus presence: without status migrainosus Intractability: not intractable Qualified Code(s): G43.909 - Migraine, unspecified, not intractable, without status migrainosus (7) Bipolar 1 disorder Current Visit: Yes Status: Chronic Continue home medication regimen Subjective Patient reports: feels better, still having pain, pain is less, voiding w/o difficulty, flatus, afebrile Objective Vital Signs - Last 8 Hours Temp Pulse Resp BP Pulse Ox 08/14/17 07:29 99.2 F 88 16 123/83 97 08/14/17 03:34 98.4 F 85 16 113/75 89 Intake and Output 08/13/17 08/14/17 08/14/17 23:59 07:59 15:59 Intake Total 1200 / 1200 1400 / 1400 Output Total 0 / 0 1300 / 1300 Balance 1200 / 1200 100 / 100 Intake: IV Fluids 1200 / 1200 1400 / 1400 0.9 % Sodium Chloride 1,000 ML 1000 / 1000 1000 / 1000 @ 130 mls/hr IVC .Q7H42M [facility] Rx #:[id number] Ofirmev 1,000 mg/100 ml 1,000 100 / 100 100 / 100 mg In 100 ml @ 400 mls/hr IVPB Q6H [facility] Rx#:[id number] Cipro Premix 400 MG/200 ML 400 200 / 200 mg In 200 ml @ 200 mls/hr IVPB Q12H [facility] Rx#:[id number] Flagyl Premix 500 MG/100 ML 500 100 / 100 100 / 100 mg In 100 ml @ 100 mls/hr IVPB Q8H [facility] Rx#:[id number] Oral 0 / 0 Output: Urine 0 / 0 1300 / 1300 Other: # Voids 1 Weight 95 kg Blood Glucose* 133 96 Patient Weight 08/14/17 23:59 Weight 95 kg - General physical appearance well developed, well nourished, no distress - Eyes normal ocular movement - ENT normal mucosa, atraumatic, normocephalic - Neck Neck exam: trachea midline - Respiratory normal respiratory effort, clear to auscultation - Cardiovascular Cardiovascular exam: Present: RRR - Abdomen Abdomen: Present: bowel sounds present (hypoactive), soft, tender (improved) - Neurologic CN 2-12 grossly intact - Psychiatric oriented to time, oriented to person, oriented to place, speech is normal, memory intact - Labs 08/14/17 06:35 08/14/17 06:35 Diabetes panel 08/14/17 Range/Units 06:35 Sodium 135 L (136-145) mEq/L Potassium 4.1 (3.5-5.1) mEq/L Chloride 105 (98-107) mEq/L Carbon Dioxide 25 (23-29) mEq/L BUN 5 L (6-20) mg/dL Creatinine 0.70 (0.60-1.20) mg/dL Glucose 104 (70-105) mg/dL Calcium 8.5 L (8.6-10.3) mg/dL Calcium panel 08/14/17 Range/Units 06:35 Calcium 8.5 L (8.6-10.3) mg/dL Phosphorus 3.3 (2.7-4.5) mg/dL Pituitary panel 08/14/17 Range/Units 06:35 Sodium 135 L (136-145) mEq/L Potassium 4.1 (3.5-5.1) mEq/L Chloride 105 (98-107) mEq/L Carbon Dioxide 25 (23-29) mEq/L BUN 5 L (6-20) mg/dL Creatinine 0.70 (0.60-1.20) mg/dL Glucose 104 (70-105) mg/dL Calcium 8.5 L (8.6-10.3) mg/dL Adrenal panel 08/14/17 Range/Units 06:35 Sodium 135 L (136-145) mEq/L Potassium 4.1 (3.5-5.1) mEq/L Chloride 105 (98-107) mEq/L Carbon Dioxide 25 (23-29) mEq/L BUN 5 L (6-20) mg/dL Creatinine 0.70 (0.60-1.20) mg/dL Glucose 104 (70-105) mg/dL Calcium 8.5 L (8.6-10.3) mg/dL - VTE Documentation of Mechanical Device: Intermittent pneumatic compression device Consult Discharge Plan - Plan Referrals: Dixon Polk MD [Primary Care Provider] - - Attending Attestation For this encounter, I have reviewed the DESIGN TRANSFERRER or PA documentation, treatment plan, and medical decision making; and I have had face to face time with this patient. <Kitty Castellano - Last Filed: 08/14/17 11:55> Date of Encounter: 08/14/17 - Assessment and Plan (1) Colitis, acute Current Visit: Yes Status: Acute patient improving with conservative therapy pain much improved today, ok start clears decrease pain medication, too sleepy continue abx prn antiemetics repeat ct in 1-2 days (2) Gardnerella vaginitis Current Visit: Yes Status: Acute (3) Diabetes type 2, controlled Current Visit: Yes Status: Chronic Qualifiers: Diabetes mellitus assisted insulin use: without assisted use Qualified Code(s): E11.9 - Type 2 diabetes mellitus without complications (4) HTN (hypertension) Current Visit: Yes Status: Chronic Qualifiers: Hypertension type: essential hypertension Qualified Code(s): I10 - Essential (primary) hypertension (5) HLD (hyperlipidemia) Current Visit: Yes Status: Chronic Qualifiers: Hyperlipidemia type: unspecified Qualified Code(s): E78.5 - Hyperlipidemia , unspecified (6) Migraines Current Visit: Yes Status: Chronic Qualifiers: Migraine type: unspecified Status migrainosus presence: without status migrainosus Intractability: not intractable Qualified Code(s): G43.909 - Migraine, unspecified, not intractable, without status migrainosus (7) Bipolar 1 disorder Current Visit: Yes Status: Chronic Subjective Patient reports: no new complaints, feels better, still having pain, pain is less, voiding w/o difficulty, flatus, no bowel movement, afebrile Objective Vital Signs - Last 8 Hours Temp Pulse Resp BP Pulse Ox 08/14/17 07:29 99.2 F 88 16 123/83 97 Intake and Output 08/13/17 08/14/17 08/14/17 23:59 07:59 15:59 Intake Total 1200 / 1200 1400 / 1400 Output Total 0 / 0 1300 / 1300 Balance 1200 / 1200 100 / 100 Intake: IV Fluids 1200 / 1200 1400 / 1400 0.9 % Sodium Chloride 1,000 ML 1000 / 1000 1000 / 1000 @ 130 mls/hr IVC .Q7H42M [facility] Rx #:[id number] Ofirmev 1,000 mg/100 ml 1,000 100 / 100 100 / 100 mg In 100 ml @ 400 mls/hr IVPB Q6H [facility] Rx#:[id number] Cipro Premix 400 MG/200 ML 400 200 / 200 mg In 200 ml @ 200 mls/hr IVPB Q12H [facility] Rx#:[id number] Flagyl Premix 500 MG/100 ML 500 100 / 100 100 / 100 mg In 100 ml @ 100 mls/hr IVPB Q8H [facility] Rx#:[id number] Oral 0 / 0 Output: Urine 0 / 0 1300 / 1300 Other: # Voids 1 Weight 95 kg Blood Glucose* 133 96 Patient Weight 08/14/17 23:59 Weight 95 kg - General physical appearance well developed, well nourished, no distress, obese - Eyes PERRL, normal ocular movement - ENT normal mucosa, normocephalic - Neck Neck exam: trachea midline - Respiratory normal expansion, normal respiratory effort - Cardiovascular Cardiovascular exam: Present: RRR - Abdomen Abdomen: Present: bowel sounds present, soft, tender. Absent: distended, guarding, rebound - Integumentary no growths - Neurologic CN 2-12 grossly intact - Musculoskeletal normal posture - Psychiatric oriented to time, memory intact - Labs 08/14/17 06:35 08/14/17 06:35 Vital Signs Temp Pulse Resp BP Pulse Ox 08/14/17 07:29 99.2 F 88 16 123/83 97 08/14/17 03:34 98.4 F 85 16 113/75 89 08/13/17 23:21 98.5 F 95 16 117/77 90 08/13/17 19:45 98.0 F 94 15 114/75 92 08/13/17 15:17 99.1 F 95 15 116/75 94 Intake and Output 08/13/17 08/14/17 08/14/17 23:59 07:59 15:59 Intake Total 1200 / 1200 1400 / 1400 Output Total 0 / 0 1300 / 1300 Balance 1200 / 1200 100 / 100 Intake: IV Fluids 1200 / 1200 1400 / 1400 0.9 % Sodium Chloride 1,000 ML 1000 / 1000 1000 / 1000 @ 130 mls/hr IVC .Q7H42M [facility] Rx #:[id number] Ofirmev 1,000 mg/100 ml 1,000 100 / 100 100 / 100 mg In 100 ml @ 400 mls/hr IVPB Q6H [facility] Rx#:[id number] Cipro Premix 400 MG/200 ML 400 200 / 200 mg In 200 ml @ 200 mls/hr IVPB Q12H [facility] Rx#:[id number] Flagyl Premix 500 MG/100 ML 500 100 / 100 100 / 100 mg In 100 ml @ 100 mls/hr IVPB Q8H [facility] Rx#:[id number] Oral 0 / 0 Output: Urine 0 / 0 1300 / 1300 Other: # Voids 1 Weight 95 kg Blood Glucose* 133 96 Patient Weight 08/14/17 23:59 Weight 95 kg Short CBC 08/14/17 Range/Units 06:35 WBC 11.9 H (4.3-11.1) K/mcL Hgb 10.4 L (11.5-15.4) g/dL Hct 32.2 L (35.3-44.9) % Plt Count 222 (140-400) K/mcL Neutrophils # 8.8 (1.6-8.9) K/mcL BMP 08/14/17 Range/Units 06:35 Sodium 135 L (136-145) mEq/L Potassium 4.1 (3.5-5.1) mEq/L Chloride 105 (98-107) mEq/L Carbon Dioxide 25 (23-29) mEq/L BUN 5 L (6-20) mg/dL Creatinine 0.70 (0.60-1.20) mg/dL Glucose 104 (70-105) mg/dL Calcium 8.5 L (8.6-10.3) mg/dL - Attending Attestation I have personally performed a face to face evaluation on this patient. I have reviewed and agree with the care plan. History and Exam by me shows:
[2017-08-14] MEDS: Topiramate 25 MG TABLET PO SCH (21:13)
[2017-08-14] MEDS: rOPINIRole 0.25 MG TABLET PO SCH (21:13)
[2017-08-15] MEDS: MORPHINE SUL Oral CONC 10 MG/0.5 ML ORAL.SYG SL PRN ×3 (01:43→20:54)
[2017-08-15] MEDS: *HR* Metoprolol 5 MG/5 ML VIAL IVP SCH ×4 (02:56→18:41)
[2017-08-15] MEDS: Acetaminophen IV 1,000 MG/100 ML INFUS..BTL IVPB SCH ×4 (03:02→20:55)
[2017-08-15] MEDS: Insulin LISPRO 300 UNITS/3 ML VIAL SQ SCH ×4 (03:04→18:27)
[2017-08-15] MEDS: MetroNIDAZOLE 500 MG/100 ML 500 MG/100 ML BAG IVPB SCH ×3 (03:21→20:52)
[2017-08-15] MEDS: 0.9 % Sodium Chloride 1,000 ML IVC SCH ×3 (03:22→18:44)
[2017-08-15 06:05] LABS: Basophils % 0.2 %; Eosinophils # 0.1 K/mcL (0.0-0.6); Eosinophils % 1.2 %; Hematocrit 28.8 % (35.3-44.9); Hemoglobin 9.1 g/dL (11.5-15.4); Immature Granulocytes % 2.4 % (0-4); Lymphocytes # 2.2 K/mcL (0.6-4.6); Lymphocytes % 17.8 %; Mean Corpuscular HGB Conc 31.6 g/dL (31.6-35.5); Monocytes # 0.7 K/mcL (0.0-1.3); Monocytes % 5.8 %; Neutrophils # 8.8 K/mcL (1.6-8.9); Nucleated Red Blood Cells 0.2 /100 WBC (0); Platelet Count 229 K/mcL (140-400); Red Blood Count 3.03 M/mcL (3.82-4.97); Red Cell Distribution Width 15.6 % (11.5-14.5); Segmented Neutrophils % 72.6 %
[2017-08-15 06:22] LABS: BUN/Creatinine Ratio 5 (6-26); Blood Urea Nitrogen 3 mg/dL (6-20); Calcium 8.2 mg/dL (8.6-10.3); Carbon Dioxide 24 mEq/L (23-29); Chloride 108 mEq/L (98-107); Glucose 103 mg/dL (70-105); Osmolality,Calculated 281 (280-300); Potassium 3.5 mEq/L (3.5-5.1); Sodium 137 mEq/L (136-145); eGFR For African Americans > 60 (> 60); eGFR For Non-African Americans > 60 (> 60)
[2017-08-15] MEDS: Pantoprazole 40 MG VIAL IVP SCH (06:31)
--- NOTE | 2017-08-15 08:15 | General Surgery Progress Note ---
Date of Encounter: 08/15/17 Time of Encounter: 08:12 - Assessment and Plan (1) Colitis, acute Current Visit: Yes Status: Acute patient continues to improve daily with conservative therapy tolerated clears, start fulls decrease pain medication, too sleepy continue abx prn antiemetics repeat ct abd/pelvis with po/iv contrast tomorrow to ensure no developing intra- abdominal abscess that would potentially need IR drainage or prolonged iv abx at in will ensure patient has cipro/flagyl to complete three weeks of abx therapy follow up with me (2) Gardnerella vaginitis Current Visit: Yes Status: Acute (3) Diabetes type 2, controlled Current Visit: Yes Status: Chronic controlled continue ssi/home meds, mbs Qualifiers: Diabetes mellitus salvage determiner insulin use: without salvage determiner use Qualified Code(s): E11.9 - Type 2 diabetes mellitus without complications (4) HTN (hypertension) Current Visit: Yes Status: Chronic stable, continue home meds Qualifiers: Hypertension type: essential hypertension Qualified Code(s): I10 - Essential (primary) hypertension (5) HLD (hyperlipidemia) Current Visit: Yes Status: Chronic holding home meds Qualifiers: Hyperlipidemia type: unspecified Qualified Code(s): E78.5 - Hyperlipidemia , unspecified (6) Migraines Current Visit: Yes Status: Chronic ok to continue home meds Qualifiers: Migraine type: unspecified Status migrainosus presence: without status migrainosus Intractability: not intractable Qualified Code(s): G43.909 - Migraine, unspecified, not intractable, without status migrainosus (7) Bipolar 1 disorder Current Visit: Yes Status: Chronic continue depakote Subjective Patient reports: feels better, tolerating liquids well, voiding w/o difficulty, flatus, bowel movement, diarrhea, afebrile Objective Vital Signs - Last 8 Hours Temp Pulse Resp BP Pulse Ox 08/15/17 07:51 93 08/15/17 06:52 97.8 F 80 14 125/80 93 08/15/17 04:29 98.3 F 93 16 134/82 94 08/15/17 01:38 98.7 F 95 16 149/87 93 Intake and Output 08/14/17 08/15/17 08/15/17 23:59 07:59 15:59 Intake Total 1300 / 1300 840 / 840 Output Total 1800 / 1800 Balance 1300 / 1300 -960 / -960 Intake: IV Fluids 1200 / 1200 500 / 500 0.9 % Sodium Chloride 1,000 ML 1000 / 1000 @ 130 mls/hr IVC .Q7H42M [facility] Rx #:[id number] Ofirmev 1,000 mg/100 ml 1,000 200 / 200 100 / 100 mg In 100 ml @ 400 mls/hr IVPB Q6H [facility] Rx#:[id number] Cipro Premix 400 MG/200 ML 400 200 / 200 mg In 200 ml @ 200 mls/hr IVPB Q12H [facility] Rx#:[id number] Flagyl Premix 500 MG/100 ML 500 200 / 200 mg In 100 ml @ 100 mls/hr IVPB Q8H [facility] Rx#:[id number] Oral 100 / 100 340 / 340 Output: Urine 1800 / 1800 Other: # Voids 1 # Bowel Movements 1 Weight 90.9 kg Patient Weight 08/15/17 23:59 Weight 90.9 kg - General physical appearance well developed, well nourished, no distress - Eyes PERRL, normal ocular movement - ENT normal mucosa, normocephalic - Neck Neck exam: trachea midline - Respiratory normal expansion, normal respiratory effort - Cardiovascular Cardiovascular exam: Present: RRR - Abdomen Abdomen: Present: soft, non tender. Absent: distended - Integumentary no rash, no growths - Neurologic CN 2-12 grossly intact - Musculoskeletal normal posture - Psychiatric oriented to time, oriented to person, oriented to place, speech is normal, memory intact - Labs 08/15/17 05:49 08/15/17 05:49 Diabetes panel 08/15/17 Range/Units 05:49 Sodium 137 (136-145) mEq/L Potassium 3.5 (3.5-5.1) mEq/L Chloride 108 H (98-107) mEq/L Carbon Dioxide 24 (23-29) mEq/L BUN 3 L (6-20) mg/dL Creatinine 0.60 (0.60-1.20) mg/dL Glucose 103 (70-105) mg/dL Calcium 8.2 L (8.6-10.3) mg/dL Calcium panel 08/15/17 Range/Units 05:49 Calcium 8.2 L (8.6-10.3) mg/dL Pituitary panel 08/15/17 Range/Units 05:49 Sodium 137 (136-145) mEq/L Potassium 3.5 (3.5-5.1) mEq/L Chloride 108 H (98-107) mEq/L Carbon Dioxide 24 (23-29) mEq/L BUN 3 L (6-20) mg/dL Creatinine 0.60 (0.60-1.20) mg/dL Glucose 103 (70-105) mg/dL Calcium 8.2 L (8.6-10.3) mg/dL Adrenal panel 08/15/17 Range/Units 05:49 Sodium 137 (136-145) mEq/L Potassium 3.5 (3.5-5.1) mEq/L Chloride 108 H (98-107) mEq/L Carbon Dioxide 24 (23-29) mEq/L BUN 3 L (6-20) mg/dL Creatinine 0.60 (0.60-1.20) mg/dL Glucose 103 (70-105) mg/dL Calcium 8.2 L (8.6-10.3) mg/dL - VTE Documentation of Mechanical Device: Intermittent pneumatic compression device Consult Discharge Plan - Plan Referrals: Dixon Polk MD [Primary Care Provider] -
[2017-08-15] MEDS ORDERED: Isovue-370 500 ML INFUS..BTL IV ONE (08:17)
[2017-08-15] MEDS: Gabapentin 300 MG CAPSULE PO SCH ×3 (08:42→21:01)
[2017-08-15] MEDS: Ranolazine 500 MG TAB.ER.12H PO SCH ×2 (08:42→21:01)
[2017-08-15] MEDS: Divalproex (12 HR) 250 MG TABLET PO SCH ×2 (08:42→21:08)
[2017-08-15] MEDS: Isosorbide MONOnitrate (24 HR) 30 MG TAB.ER.24H PO SCH (08:42)
[2017-08-15] MEDS: Topiramate 25 MG TABLET PO SCH (21:01)
[2017-08-15] MEDS: rOPINIRole 0.25 MG TABLET PO SCH (21:01)
[2017-08-16] MEDS: *HR* Metoprolol 5 MG/5 ML VIAL IVP SCH ×5 (00:43→23:42)
[2017-08-16] MEDS: Acetaminophen IV 1,000 MG/100 ML INFUS..BTL IVPB SCH ×4 (02:14→20:36)
[2017-08-16] MEDS: 0.9 % Sodium Chloride 1,000 ML IVC SCH ×3 (03:28→19:00)
[2017-08-16] MEDS: Insulin LISPRO 300 UNITS/3 ML VIAL SQ SCH ×5 (04:44→23:51)
[2017-08-16] MEDS: MetroNIDAZOLE 500 MG/100 ML 500 MG/100 ML BAG IVPB SCH ×3 (05:40→19:43)
[2017-08-16] MEDS: Pantoprazole 40 MG VIAL IVP SCH (06:50)
[2017-08-16 07:14] LABS: Basophils % 0.3 %; Eosinophils # 0.2 K/mcL (0.0-0.6); Eosinophils % 1.5 %; Hematocrit 28.6 % (35.3-44.9); Hemoglobin 9.2 g/dL (11.5-15.4); Lymphocytes # 2.1 K/mcL (0.6-4.6); Lymphocytes % 18.5 %; Mean Corpuscular HGB Conc 32.2 g/dL (31.6-35.5); Mean Corpuscular Hemoglobin 30.4 pg (28.0-33.3); Mean Corpuscular Volume 94.4 fL (83.0-100.0); Monocytes # 0.7 K/mcL (0.0-1.3); Monocytes % 5.9 %; Platelet Count 222 K/mcL (140-400); Red Blood Count 3.03 M/mcL (3.82-4.97); Red Cell Distribution Width 15.8 % (11.5-14.5); Segmented Neutrophils % 69.8 %
[2017-08-16 07:34] LABS: BUN/Creatinine Ratio 4 (6-26); Blood Urea Nitrogen 2 mg/dL (6-20); Calcium 8.3 mg/dL (8.6-10.3); Carbon Dioxide 22 mEq/L (23-29); Chloride 110 mEq/L (98-107); Glucose 97 mg/dL (70-105); Osmolality,Calculated 280 (280-300); Potassium 3.5 mEq/L (3.5-5.1); Sodium 137 mEq/L (136-145); eGFR For African Americans > 60 (> 60); eGFR For Non-African Americans > 60 (> 60)
[2017-08-16] MEDS: Divalproex (12 HR) 250 MG TABLET PO SCH ×2 (08:57→20:39)
[2017-08-16] MEDS: Ranolazine 500 MG TAB.ER.12H PO SCH ×2 (08:57→20:39)
[2017-08-16] MEDS: Gabapentin 300 MG CAPSULE PO SCH ×3 (08:57→20:39)
[2017-08-16] MEDS: Isosorbide MONOnitrate (24 HR) 30 MG TAB.ER.24H PO SCH (08:57)
--- NOTE | 2017-08-16 12:32 | General Surgery Progress Note ---
Date of Encounter: 08/16/17 Time of Encounter: 12:00 - Assessment and Plan (1) Colitis, acute Current Visit: Yes Status: Acute Continue with conservative measures: Full liquids, NPO after midnight for possible IR drainage of fluid collection Consult to IR for 08/17/17 for assessment of drainage of fluid collection Continue Cipro and Flagyl IV fluids- decreased to 75ml/hour Supportive care and pain control Serial abdominal exams Incentive Spirometer every 1 hour while awake Ambulate hallways TID PPI therapy daily Repeat am labs- CBC, BMP CT results- CT/CT abd pelvis w iv and oral IMPRESSION: 1. As seen on the prior exam there is abnormal edema and soft tissue induration with inflammation at the posterior aspect of the cervix abutting the anterior colonic wall. Though a fistula is not clearly identified as suggested on the prior CT this cannot be excluded. Mild progressive loculated fluid collection in the posterior pelvic cul-de-sac measuring 4.6 cm. There is no internal gas foci to suggest an abscess. Stable secondary distal sigmoid and rectal inflammation. Mild progressive retroperitoneal inflammatory changes with some progressive mild reactive periaortic lymph nodes. 2. No bowel obstruction. (2) Gardnerella vaginitis Current Visit: Yes Status: Acute Continue Flagyl (3) Diabetes type 2, controlled Current Visit: Yes Status: Chronic Controlled Continue to monitor Will add metformin back with advancement of diet Qualifiers: Diabetes mellitus termite treater helper insulin use: without long-term use Qualified Code(s): E11.9 - Type 2 diabetes mellitus without complications (4) HTN (hypertension) Current Visit: Yes Status: Chronic Controlled Continue current medication regimen Qualifiers: Hypertension type: essential hypertension Qualified Code(s): I10 - Essential (primary) hypertension (5) HLD (hyperlipidemia) Current Visit: Yes Status: Chronic Qualifiers: Hyperlipidemia type: unspecified Qualified Code(s): E78.5 - Hyperlipidemia , unspecified (6) Migraines Current Visit: Yes Status: Chronic Continue home medication regimen Qualifiers: Migraine type: unspecified Status migrainosus presence: without status migrainosus Intractability: not intractable Qualified Code(s): G43.909 - Migraine, unspecified, not intractable, without status migrainosus (7) Bipolar 1 disorder Current Visit: Yes Status: Chronic Continue home medication regimen Subjective Patient reports: no new complaints, still having pain, pain is less, tolerating liquids well (full liquids), voiding w/o difficulty, flatus, bowel movement (08/15), afebrile Objective Vital Signs - Last 8 Hours Temp Pulse Resp BP Pulse Ox 08/16/17 11:31 97.8 F 80 15 163/97 96 08/16/17 06:32 98.1 F 81 16 150/90 93 Intake and Output 08/15/17 08/16/17 08/16/17 23:59 07:59 15:59 Intake Total 1880 / 1880 1300 / 1300 1200 / 1200 Output Total 200 / 200 Balance 1680 / 1680 1300 / 1300 1200 / 1200 Intake: IV Fluids 1400 / 1400 1100 / 1100 1200 / 1200 0.9 % Sodium Chloride 1,000 ML 1000 / 1000 1000 / 1000 1000 / 1000 @ 130 mls/hr IVC .[id number] [facility] Rx #:[id number] Ofirmev 1,000 mg/100 ml 1,000 100 / 100 100 / 100 100 / 100 mg In 100 ml @ 400 mls/hr IVPB Q6H [facility] Rx#:[id number] Cipro Premix 400 MG/200 ML 400 200 / 200 mg In 200 ml @ 200 mls/hr IVPB Q12H [facility] Rx#:[id number] Flagyl Premix 500 MG/100 ML 500 100 / 100 100 / 100 mg In 100 ml @ 100 mls/hr IVPB Q8H [facility] Rx#:[id number] Oral 480 / 480 200 / 200 Output: Urine 200 / 200 Other: Meal Dinner # Voids 1 1 Weight 90.718 kg Blood Glucose* 91 108 143 Patient Weight 08/16/17 23:59 Weight 90.718 kg - General physical appearance well developed, well nourished, no distress - Eyes normal ocular movement - ENT normal mucosa, atraumatic, normocephalic - Neck Neck exam: trachea midline - Respiratory normal respiratory effort, clear to auscultation - Cardiovascular Cardiovascular exam: Present: RRR - Abdomen Abdomen: Present: bowel sounds present, soft, tender Abdominal Tenderness: suprapubic (improving) - Neurologic CN 2-12 grossly intact - Psychiatric oriented to time, oriented to person, oriented to place, speech is normal, memory intact - Labs 08/16/17 06:52 07/04/18 06:52 Diabetes panel 08/16/17 Range/Units 06:52 Sodium 137 (136-145) mEq/L Potassium 3.5 (3.5-5.1) mEq/L Chloride 110 H (98-107) mEq/L Carbon Dioxide 22 L (23-29) mEq/L BUN 2 L (6-20) mg/dL Creatinine 0.56 L (0.60-1.20) mg/dL Glucose 97 (70-105) mg/dL Calcium 8.3 L (8.6-10.3) mg/dL Calcium panel 08/16/17 Range/Units 06:52 Calcium 8.3 L (8.6-10.3) mg/dL Pituitary panel 08/16/17 Range/Units 06:52 Sodium 137 (136-145) mEq/L Potassium 3.5 (3.5-5.1) mEq/L Chloride 110 H (98-107) mEq/L Carbon Dioxide 22 L (23-29) mEq/L BUN 2 L (6-20) mg/dL Creatinine 0.56 L (0.60-1.20) mg/dL Glucose 97 (70-105) mg/dL Calcium 8.3 L (8.6-10.3) mg/dL Adrenal panel 08/16/17 Range/Units 06:52 Sodium 137 (136-145) mEq/L Potassium 3.5 (3.5-5.1) mEq/L Chloride 110 H (98-107) mEq/L Carbon Dioxide 22 L (23-29) mEq/L BUN 2 L (6-20) mg/dL Creatinine 0.56 L (0.60-1.20) mg/dL Glucose 97 (70-105) mg/dL Calcium 8.3 L (8.6-10.3) mg/dL - VTE Documentation of Mechanical Device: Intermittent pneumatic compression device Consult Discharge Plan - Plan Referrals: Dixon Polk MD [Primary Care Provider] - - Attending Attestation For this encounter, I have reviewed the [employer] or PA documentation, treatment plan, and medical decision making; and I have had face to face time with this patient.
[2017-08-16] MEDS: rOPINIRole 0.25 MG TABLET PO SCH (20:39)
[2017-08-16] MEDS: Topiramate 25 MG TABLET PO SCH (20:39)
[2017-08-17] MEDS: Acetaminophen IV 1,000 MG/100 ML INFUS..BTL IVPB SCH ×2 (01:36→10:16)
[2017-08-17] MEDS: 0.9 % Sodium Chloride 1,000 ML IVC SCH (03:20)
[2017-08-17] MEDS: MetroNIDAZOLE 500 MG/100 ML 500 MG/100 ML BAG IVPB SCH ×2 (03:23→12:36)
[2017-08-17 04:26] LABS: Hematocrit 29.6 % (35.3-44.9); Hemoglobin 9.7 g/dL (11.5-15.4); Mean Corpuscular HGB Conc 32.8 g/dL (31.6-35.5); Mean Corpuscular Hemoglobin 31.2 pg (28.0-33.3); Mean Corpuscular Volume 95.2 fL (83.0-100.0); Mean Platelet Volume 10.3 fL (9.4-12.4); Nucleated Red Blood Cells 0.4 /100 WBC (0); Platelet Count 247 K/mcL (140-400); Red Blood Count 3.11 M/mcL (3.82-4.97); Red Cell Distribution Width 15.6 % (11.5-14.5)
[2017-08-17 04:40] LABS: BUN/Creatinine Ratio 4 (6-26); Blood Urea Nitrogen 2 mg/dL (6-20); Calcium 8.6 mg/dL (8.6-10.3); Carbon Dioxide 22 mEq/L (23-29); Chloride 108 mEq/L (98-107); Glucose 97 mg/dL (70-105); Osmolality,Calculated 280 (280-300); Potassium 3.1 mEq/L (3.5-5.1); Sodium 137 mEq/L (136-145); eGFR For African Americans > 60 (> 60); eGFR For Non-African Americans > 60 (> 60)
[2017-08-17 05:46] LABS: Lymphocytes # 1.6 K/mcL (0.6-4.6); Macrocytosis Present (Not Present); Neutrophils # 7.1 K/mcL (1.6-8.9); Platelet Estimate Normal (Normal); Polychromasia 1+ (Not Present)
[2017-08-17 05:47] LABS: Hypochromasia Present (Not Present)
[2017-08-17] MEDS: *HR* Metoprolol 5 MG/5 ML VIAL IVP SCH ×3 (06:01→17:38)
[2017-08-17] MEDS: Pantoprazole 40 MG VIAL IVP SCH ×2 (06:05→06:16)
[2017-08-17] MEDS: Insulin LISPRO 300 UNITS/3 ML VIAL SQ SCH ×2 (06:06→12:37)
[2017-08-17] MEDS: MORPHINE SUL Oral CONC 10 MG/0.5 ML ORAL.SYG SL PRN ×2 (06:14→11:52)
[2017-08-17] MEDS: Divalproex (12 HR) 250 MG TABLET PO SCH (08:34)
[2017-08-17] MEDS: Ranolazine 500 MG TAB.ER.12H PO SCH (08:34)
[2017-08-17] MEDS: Gabapentin 300 MG CAPSULE PO SCH ×2 (08:34→17:38)
[2017-08-17] MEDS: Isosorbide MONOnitrate (24 HR) 30 MG TAB.ER.24H PO SCH (08:35)
[2017-08-17 08:54] LABS: INR 1.3; Prothrombin Time 14.2 Seconds (9.4-12.1)
--- NOTE | 2017-08-17 10:53 | Discharge Summary ---
<Peyton Yates - Last Filed: 08/17/17 16:32> Orders not resulted at time of discharge: Pending orders 08/17/17 06:33 Culture,Anaerobic [RM] Routine Culture,Body Fluid [RM] Routine Date of Encounter: 08/17/17 Time of Encounter: 10:00 - Discharge Diagnosis (1) Sepsis Priority: Primary Status: Acute Qualifiers: Sepsis type: sepsis due to unspecified organism Qualified Code(s): A41.9 - Sepsis, unspecified organism (2) Abscess Priority: Primary Status: Acute (3) Colitis, acute Priority: Secondary Status: Acute (4) Gardnerella vaginitis Priority: Secondary Status: Acute (5) Diabetes type 2, controlled Priority: Secondary Status: Chronic Qualifiers: Diabetes mellitus termination clerk insulin use: without nursing home use Diabetes mellitus complication status: with unspecified complications Qualified Code(s) : E11.8 - Type 2 diabetes mellitus with unspecified complications General Surgery Exam Initial Vital Signs Temp Pulse Resp BP Pulse Ox 99.1 F 111 20 115/78 93 08/12/17 18:33 08/12/17 18:33 08/12/17 18:33 08/12/17 18:33 08/12/17 18:33 Vital Signs Temp Pulse Resp BP Pulse Ox 08/17/17 10:18 98.1 F 83 15 163/83 96 08/17/17 10:13 98.1 F 83 15 163/83 96 08/17/17 06:39 97.7 F 72 15 184/101 96 08/17/17 03:58 97.6 F 78 18 165/97 96 08/16/17 23:55 97.8 F 80 18 163/93 93 08/16/17 19:13 97.4 F L 80 17 162/95 94 08/16/17 15:30 99.0 F 88 16 170/86 94 Intake and Output 08/16/17 08/17/17 08/17/17 23:59 07:59 15:59 Intake Total 640 / 640 1200 / 1200 0 / 0 Output Total 0 / 0 500 / 500 Balance 640 / 640 1200 / 1200 -500 / -500 Intake: IV Fluids 400 / 400 1200 / 1200 0.9 % Sodium Chloride 1,000 ML 1000 / 1000 @ 75 mls/hr IVC .[id number] [facility] Rx #:[id number] Ofirmev 1,000 mg/100 ml 1,000 100 / 100 100 / 100 mg In 100 ml @ 400 mls/hr IVPB Q6H [facility] Rx#:[id number] Cipro Premix 400 MG/200 ML 400 200 / 200 mg In 200 ml @ 200 mls/hr IVPB Q12H [facility] Rx#:[id number] Flagyl Premix 500 MG/100 ML 500 100 / 100 100 / 100 mg In 100 ml @ 100 mls/hr IVPB Q8H [facility] Rx#:[id number] Oral 240 / 240 0 / 0 0 / 0 Output: Urine 0 / 0 500 / 500 Other: Meal Dinner npo Percent of Meal Consumed 100% Weight 94.8 kg Blood Glucose* 97 107 98 VITAL SIGNS: Reviewed. See [facility] GENERAL: In no apparent distress. HEENT: Normocephalic, atraumatic, pupils are equal and reactive, extraocular motions intact, oropharynx is pink and moist, there is no neck adenopathy or JVD noted. Edentulous CHEST/RESPIRATORY: The thorax is free from signs of trauma. Lung sounds: clear to auscultation, normal respiratory effort CARDIAC: Regular rate and rhythm. Normal S1 and S2, without murmurs, gallops, or rubs. VASCULAR: No Edema. 2+ peripheral pulses. ABDOMEN: soft, obese, active bowel sounds, nontender MUSCULOSKELETAL: Good range of motion of all major joints. Extremities without clubbing, cyanosis or edema. NEUROLOGIC EXAM: Alert and oriented x 3. Speech normal. Follows commands. PSYCHIATRIC: Mood normal. SKIN: No rash or lesions. - Hospital Course Hospital course: Ms. Rae is a 46 year old female who underwent a leep procedure on 08/07/2017. She went home and was having pelvic pain which she expected and it appears to at one point gotten a little better. Monday she began having sharp intermittent pelvic pain. She denies nausea or emesis. She presented to the ED with abdominal pain. CT scan abdomen and pelvis showed "Abnormal appearance of the distal sigmoid colon with marked wall thickening and surrounding inflammatory changes. These extend into the rectal region. The vaginal cavity is inseparable from the rectum. Air is seen within the vaginal cavity with debris. Increased fluid is seen within the cul-de-sac. Subtle peripheral enhancement suggests a developing abscess. Rectovaginal fistula is suspected." WBC 18.5. Cr wnl. Vaginal exam with cultures done by ED, Gardnerella positive. She was treated with bowel rest and IV antibiotics. On 08/16/2017, a TT of the abdomen and pelvis with oral and IV contrast was completed which noted no internal gas foci to suggest an abscess, stable life chelated fluid collection in the posterior pelvis measuring 4.6 cm, and distal sigmoid and rectal inflammation, no bowel obstruction noted. A consult was placed to interventional radiology for possible drain placement versus aspiration. Interventional radiology did not feel the benefit of the procedure outweighed the risk given that the patient's white blood cell count had normalized and her symptoms were nonspecific. Infectious disease was consult did for antibiotic recommendations and outpatient management of pelvic abscess and recommended IV antibitotics at d/c. Time spent discussing smoking cessation with patient: 3 to 10 minutes - Time Spent with Patient Total time spent providing and/or coordinating discharge services: Less than 30 minutes - Discharge Medications Home Medications: Aspirin 81 mg PO DAILY 06/22/15 [History] Isosorbide MONOnitrate (24 HR) [Imdur] 30 mg PO DAILY 06/22/15 [History] Simvastatin [Zocor] 40 mg PO HS 06/22/15 [History] Albuterol Sulfate [Proair Hfa] 2 puff IH Q4H PRN 01/28/16 [History] Amitriptyline [Elavil] 25 - 50 mg PO HS 01/28/16 [History] Ascorbic Acid [Vitamin C] 250 mg PO BID 01/28/16 [History] Butalb/Acetaminophen/Caffeine [Zebutal 50-325-40 mg Capsule] 1 cap PO Q8H PRN [History] Cyclobenzaprine HCl 10 mg PO TID PRN 01/28/16 [History] Divalproex Sodium [Depakote] 250 mg PO BID 01/28/16 [History] Docusate [Colace] 100 mg PO BID PRN 01/28/16 [History] Ipratropium [ATROVENT Inhaler] 2 puff IH Q6HR PRN 01/28/16 [History] Lactulose 15 gm PO DAILY PRN 01/28/16 [History] Meclizine [Antivert] 25 mg PO BID PRN 01/28/16 [History] Metformin HCl [Glucophage] 1,000 mg PO BID 01/28/16 [History] Potassium Chloride 20 meq PO DAILY 01/28/16 [History] Ranolazine [Ranexa] 500 mg PO BID 01/28/16 [History] Ropinirole HCl [Requip] 0.5 - 1 mg PO HS 01/28/16 [History] SUMAtriptan Succinate [Imitrex] 100 mg PO ONCE PRN 01/28/16 [History] Topiramate [Topamax] 25 - 50 mg PO HS 01/28/16 [History] Wheat Dextrin [Benefiber] 1 each PO DAILY PRN 01/28/16 [History] Acetaminophen [Tylenol] 500 mg PO Q6HR PRN #20 tablet 03/23/17 [Rx] Promethazine [Phenergan] 12.5 mg PO Q8HR PRN #10 tablet 03/23/17 [Rx] Gabapentin [Neurontin] 300 mg PO TID 08/07/17 [History] Ibuprofen [Motrin] 600 mg PO Q8H PRN 08/07/17 [History] Loratadine [Claritin] 10 mg PO DAILY 08/07/17 [History] Metoprolol [Lopressor] 12.5 mg PO BID 08/07/17 [History] Omeprazole [PriLOSEC] 40 mg PO DAILY 08/07/17 [History] Polyethylene Glycol 3350 [MiraLAX] 17 gm PO DAILY 08/07/17 [History] Ferrous Sulfate [Iron] 325 mg PO DAILY 08/13/17 [History] Lisinopril [Zestril] 10 mg PO DAILY 08/13/17 [History] Allergies/Adverse Reactions: 3 Allergy/AdvReac Type Severity Reaction Status Date / Time losartan AdvReac Hives Verified 08/13/17 15:16 Oxycodone [From OxyContin] AdvReac Nausea Verified 08/13/17 15:16 Penicillins [PCN] AdvReac Swelling Verified 08/13/17 15:16 of the Eye Date of admission: 08/13/17 12:30 Primary care physician: Dixon Polk MD Consults: 08/17/17 07:00 Consult to Interventional Radiology [CONS] Routine Consulting Provider: Radiology Interventional Cols Reason for Consult: Drainage of pelvic fluid collection identified on CT Call Completed: No 08/17/17 10:35 Consult to Infectious Diseases [CONS] Routine Consulting Provider: Infectious Disease [place] Reason for Consult: DC recommendations (IV vs PO ATBX) and OP management of pelvic abscess Time Notified: 10:37 Call Completed: Yes Discharging clinician: Kitty Yates) Anticipated date of discharge: 08/17/17 Labs on day of discharge: Labs from last 24 hours 08/17/17 08/17/17 08/17/17 08:25 05:28 03:32 WBC RBC Hgb Hct MCV MCH MCHC RDW Plt Count MPV Seg Neutrophils % Band Neutrophils % Lymphocytes % Monocytes % Metamyelocytes % Myelocytes % Neutrophils # Lymphocytes # Monocytes # Nucleated RBCs/100 WBC Platelet Estimate Polychromasia Hypochromasia Macrocytosis PT 14.2 H INR 1.3 Sodium 137 Potassium 3.1 L Chloride 108 H Carbon Dioxide 22 L BUN 2 L Creatinine 0.57 L Est GFR ( Amer) > 60 Est GFR (Non-Af Amer) > 60 BUN/Creatinine Ratio 4 L Glucose 97 POC Glucose 107 H Calculated Osmolality 280 Calcium 8.6 08/17/17 08/16/17 08/16/17 03:32 23:40 17:19 WBC 10.1 RBC 3.11 L Hgb 9.7 L Hct 29.6 L MCV 95.2 MCH 31.2 MCHC 32.8 RDW 15.6 H Plt Count 247 MPV 10.3 Seg Neutrophils % 62.0 Band Neutrophils % 8.0 H Lymphocytes % 16.0 Monocytes % 10.0 Metamyelocytes % 2.0 H Myelocytes % 2.0 H Neutrophils # 7.1 Lymphocytes # 1.6 Monocytes # 1.0 Nucleated RBCs/100 WBC 0.4 H Platelet Estimate Normal Polychromasia 1+ A Hypochromasia Present A Macrocytosis Present A PT INR Sodium Potassium Chloride Carbon Dioxide BUN Creatinine Est GFR ( Amer) Est GFR (Non-Af Amer) BUN/Creatinine Ratio Glucose POC Glucose 97 125 H Calculated Osmolality Calcium 08/16/17 11:33 WBC RBC Hgb Hct MCV MCH MCHC RDW Plt Count MPV Seg Neutrophils % Band Neutrophils % Lymphocytes % Monocytes % Metamyelocytes % Myelocytes % Neutrophils # Lymphocytes # Monocytes # Nucleated RBCs/100 WBC Platelet Estimate Polychromasia Hypochromasia Macrocytosis PT INR Sodium Potassium Chloride Carbon Dioxide BUN Creatinine Est GFR ( Amer) Est GFR (Non-Af Amer) BUN/Creatinine Ratio Glucose POC Glucose 143 H Calculated Osmolality Calcium - Impressions ITS Impressions Abdomen/Pelvis CT 08/16/17 09:30 IMPRESSION: 1. As seen on the prior exam there is abnormal edema and soft tissue induration with inflammation at the posterior aspect of the cervix abutting the anterior colonic wall. Though a fistula is not clearly identified as suggested on the prior CT this cannot be excluded. Mild progressive loculated fluid collection in the posterior pelvic cul-de-sac measuring 4.6 cm. There is no internal gas foci to suggest an abscess. Stable secondary distal sigmoid and rectal inflammation. Mild progressive retroperitoneal inflammatory changes with some progressive mild reactive periaortic lymph nodes. 2. No bowel obstruction. D/ / 08/16/2017 10:17:03 Gm Marie MD / bcarter Interpreting Provider: Gm Marie MD - Patient Status Disposition: Home, Self-Care Condition: Fair Functional capacity at discharge: independent ambulation Overall status at discharge: patient is progressing back to baseline - Discharge Instructions Follow Up With: Dixon Polk MD [Primary Care Provider] - Roseline Brock MD [Partnered Physician] - (as directed) Kitty Castellano MD [Partnered Physician] - (want to see next mon or ) Additional Instructions: Take your antibiotics as directed. Do not stop antibiotics until recommended to do so from your provider. - Diet and Activity Activity: increase activity as tolerated Diet: advance to your usual diet <Kitty Castellano - Last Filed: 08/17/17 18:45> Orders not resulted at time of discharge: Pending orders 08/17/17 06:33 Culture,Anaerobic [RM] Routine Culture,Body Fluid [RM] Routine Date of Encounter: 08/17/17 - Discharge Diagnosis (1) Colitis, acute Status: Acute (2) Gardnerella vaginitis Status: Acute (3) Diabetes type 2, controlled Status: Chronic Qualifiers: Diabetes mellitus nursing home insulin use: without nursing home use Diabetes mellitus complication status: with unspecified complications Qualified Code(s) : E11.8 - Type 2 diabetes mellitus with unspecified complications (4) HTN (hypertension) Status: Chronic Qualifiers: Hypertension type: essential hypertension Qualified Code(s): I10 - Essential (primary) hypertension (5) HLD (hyperlipidemia) Status: Chronic Qualifiers: Hyperlipidemia type: unspecified Qualified Code(s): E78.5 - Hyperlipidemia , unspecified (6) Migraines Status: Chronic Qualifiers: Migraine type: unspecified Status migrainosus presence: without status migrainosus Intractability: not intractable Qualified Code(s): G43.909 - Migraine, unspecified, not intractable, without status migrainosus (7) Bipolar 1 disorder Status: Chronic General Surgery Exam Initial Vital Signs Temp Pulse Resp BP Pulse Ox 99.1 F 111 20 115/78 93 08/12/17 18:33 08/12/17 18:33 08/12/17 18:33 08/12/17 18:33 08/12/17 18:33 - General physical appearance well developed, well nourished, no distress - Eyes PERRL, normal ocular movement - ENT normal mucosa, normocephalic - Neck trachea midline - Respiratory normal expansion, normal respiratory effort - Abdomen Abdomen general surgery: Present: bowel sounds present, soft, non tender. Absent: distended, guarding, rebound - Integumentary Integumentary general surgery: Present: warm and dry, no abnormal pigmentation - Neurologic Present: CN 2-12 grossly intact - Musculoskeletal Present: normal posture - Psychiatric Psychiatric general surgery: Present: A&Ox3, speech is normal - Hospital Course Hospital course: Ms. Rae is a 46 year old female - Time Spent with Patient Total time spent providing and/or coordinating discharge services: Date of admission: 08/13/17 12:30 Primary care physician: Dixon Polk MD Consults: 08/17/17 07:00 Consult to Interventional Radiology [CONS] Routine Consulting Provider: Radiology Interventional Cols Reason for Consult: Drainage of pelvic fluid collection identified on CT Call Completed: No 08/17/17 10:35 Consult to Infectious Diseases [CONS] Routine Consulting Provider: Infectious Disease [place] Reason for Consult: DC recommendations (IV vs PO ATBX) and OP management of pelvic abscess Time Notified: 10:37 Call Completed: Yes Labs on day of discharge: Labs from last 24 hours 08/17/17 08/17/17 08/17/17 08:25 05:28 03:32 WBC RBC Hgb Hct MCV MCH MCHC RDW Plt Count MPV Seg Neutrophils % Band Neutrophils % Lymphocytes % Monocytes % Metamyelocytes % Myelocytes % Neutrophils # Lymphocytes # Monocytes # Nucleated RBCs/100 WBC Platelet Estimate Polychromasia Hypochromasia Macrocytosis PT 14.2 H INR 1.3 Sodium 137 Potassium 3.1 L Chloride 108 H Carbon Dioxide 22 L BUN 2 L Creatinine 0.57 L Est GFR ( Amer) > 60 Est GFR (Non-Af Amer) > 60 BUN/Creatinine Ratio 4 L Glucose 97 POC Glucose 107 H Calculated Osmolality 280 Calcium 8.6 08/17/17 08/16/17 03:32 23:40 WBC 10.1 RBC 3.11 L Hgb 9.7 L Hct 29.6 L MCV 95.2 MCH 31.2 MCHC 32.8 RDW 15.6 H Plt Count 247 MPV 10.3 Seg Neutrophils % 62.0 Band Neutrophils % 8.0 H Lymphocytes % 16.0 Monocytes % 10.0 Metamyelocytes % 2.0 H Myelocytes % 2.0 H Neutrophils # 7.1 Lymphocytes # 1.6 Monocytes # 1.0 Nucleated RBCs/100 WBC 0.4 H Platelet Estimate Normal Polychromasia 1+ A Hypochromasia Present A Macrocytosis Present A PT INR Sodium Potassium Chloride Carbon Dioxide BUN Creatinine Est GFR ( Amer) Est GFR (Non-Af Amer) BUN/Creatinine Ratio Glucose POC Glucose 97 Calculated Osmolality Calcium - Impressions ITS Impressions Abdomen/Pelvis CT 08/16/17 09:30 IMPRESSION: 1. As seen on the prior exam there is abnormal edema and soft tissue induration with inflammation at the posterior aspect of the cervix abutting the anterior colonic wall. Though a fistula is not clearly identified as suggested on the prior CT this cannot be excluded. Mild progressive loculated fluid collection in the posterior pelvic cul-de-sac measuring 4.6 cm. There is no internal gas foci to suggest an abscess. Stable secondary distal sigmoid and rectal inflammation. Mild progressive retroperitoneal inflammatory changes with some progressive mild reactive periaortic lymph nodes. 2. No bowel obstruction. D/ / 08/16/2017 10:17:03 Gm Marie MD / bcarter Interpreting Provider: Gm Marie MD - Attending Attestation I have personally performed a face to face evaluation on this patient. I have reviewed and agree with the care plan. History and Exam by me shows:
--- NOTE | 2017-08-17 13:00 | Infectious Disease Consult ---
Date of Encounter: 08/17/17 Time of Encounter: 12:53 Assessment and Plan (1) Sepsis Status: Acute Assessment and plan: The patient had three SIRS criteria. Possible etiologies include pelvic fluid collection vs. UTI vs. colitis. Improved. WBC normalized today, but has bandemia. Tachycardia has resolved. She has been afebrile. No blood cultures were drawn. Lactic acid was normal. Qualifiers: Sepsis type: sepsis due to unspecified organism Qualified Code(s): A41.9 - Sepsis, unspecified organism (2) Pelvic fluid collection Status: Acute Assessment and plan: Etiology unclear: abscess vs. post-op changes. CT of the abdomen and pelvic completed 08/12/17 showed abnormal inflammatory process within the pelvis with rectovaginal fistula suspected and possible developing abscess. Underlying malignancy cannot be excluded. Repeat CT scan completed August 16 showed abnormal edema and soft tissue induration with inflammation at the posterior aspect of the cervix abutting the anterior colonic wall. A fistula was not clearly identified as suggested on the prior CT but cannot be excluded. There was mild progressive loculated fluid collection in the posterior pelvic cul-de-sac measuring 4.67 m without internal gas foci to suggest an abscess. There is also noted to be stable secondary distal sigmoid and rectal inflammation. Gen. surgery consulted and following. Interventional radiology consult for possible drainage of the fluid collection. They have declined to perform procedure stating that the risks of performing the procedure outweigh the benefits. Discussed with radiology. Likely an abscess. Etiology unclear, but given the concern for possible rectovaginal fistula on initial imaging, recommend further workup. The patient may benefit from evaluation by PHOTOGRAPHIC PROCESS ATTENDANT surgery team. Clinically, the patient has improved. Continue Cipro 400mg IV BID. Continue Cipro 500mg IV TID. Duration of treatment depends on the clinical picture. She will likely require a prolonged course of IV antibiotics. Monitor renal function and dose-adjust antibiotics. (3) Rectovaginal fistula Status: Suspected Assessment and plan: Possibly, noted on CT scan. Recommend recommend CT scan with with rectal contrast to rule out. (4) Colitis, acute Status: Acute Assessment and plan: Etiology unclear. Inflammatory changes of the rectosigmoid colon noted on CT scan. Continue Cipro 400mg IV BID. Continue Flagyl 500mg IV TID. Duration of treatment depends on the clinical picture, but she will likely require prolonged antibiotic therapy due to the intra-pelvic fluid collection. Monitor renal function and dose-adjust antibiotics. (5) UTI (urinary tract infection) Status: Acute Assessment and plan: Urine culture positive for K. pneumoniae. Continue antibiotics as above. Qualifiers: Urinary tract infection type: site unspecified Hematuria presence: without hematuria Qualified Code(s): N39.0 - Urinary tract infection, site not specified (6) Diabetes type 2, controlled Status: Chronic Assessment and plan: Recommend aggressive glucose monitoring and control to promote wound healing and prevent re-infection. Qualifiers: Diabetes mellitus correction insulin use: without superintendent container terminal use Diabetes mellitus complication status: with unspecified complications Qualified Code(s) : E11.8 - Type 2 diabetes mellitus with unspecified complications (7) Vaginitis Status: Acute Assessment and plan: Vaginitis/cervicitis. CT shows alot of inflammation near the cervix. Vaginal culture swabs positive for Gardnerella and K. Pneumoniae. Likely secondary to recent surgical procedure. Continue cipro and flagyl as above. Qualifiers: Chronicity: acute Qualified Code(s): N76.0 - Acute vaginitis (8) HTN (hypertension) Status: Chronic Qualifiers: Hypertension type: essential hypertension Qualified Code(s): I10 - Essential (primary) hypertension (9) HLD (hyperlipidemia) Status: Chronic Qualifiers: Hyperlipidemia type: unspecified Qualified Code(s): E78.5 - Hyperlipidemia , unspecified Infectious Disease HPI - Data of Consult Patient: new to practice Consult date: 08/17/17 Requesting Physician: Kitty Castellano MD Primary Care Provider: Dixon Polk MD - Consult Narrative Reason for consult: Pelvic abscess History of present illness: Ms. Rae is a 46 year old female with a past medical history of diabetes, GERD , hyperlipidemia, hypertension, migraine headaches, and high-grade cervical dysplasia status post LEEP procedure 08/07/2017. The patient was admitted to the hospital August 12 for rectovaginal fistula and colitis. We are consulted August 17 for further recommendations for pelvic abscess. Briefly, the patient's a 46-year-old female with past medical history as stated above. The patient presented to the emergency department on the day of admission with complaints of 24 history of severe lower abdominal pain. The patient had undergone a LEEP procedure for high-grade cervical dysplasia back on [address] Ibarra. She reported a low-grade fever at home. Upon arrival , she was afebrile, but was tachycardic and had neutrophilic leukocytosis. Urinalysis was positive for pyuria and culture grew out Klebsiella pneumoniae. The patient had a pelvic exam and cultures were obtained that were positive for Gardnerella and Klebsiella pneumoniae and anaerobes. Her gonorrhea and chlamydia testing were negative. Trichomonas is negative as well. She had a CT abdomen and pelvis that showed an abnormal appearance of the distal sigmoid colon with marked wall thickening and surrounding inflammatory changes that extend into the rectal region. There was also noted to be an abnormal inflammatory process within the pelvis and a rectovaginal fistula was suspected. Developing abscess could not be excluded. The patient was started on IV Cipro and Flagyl and admitted to the General Surgery team's service for further evaluation. Since admission, the patient had a MAXIMUM TEMPERATURE of 101.9 on the day of admission, but has been afebrile since then. Her white blood cell count has normalized. She had a repeat CT the abdomen and pelvis on August 16 that showed abnormal edema and soft tissue induration with inflammation at the posterior aspect of the cervix abutting the anterior colonic wall. The fistula was not clearly identified as suggested on prior CT, this cannot be excluded. Mild progressive loculated fluid collection in the posterior pelvic cul-de-sac measuring 4.6 cm was noted. There is no internal gas foci to suggest an abscess. There is also stable secondary distal sigmoid and rectal inflammation and mild progressive retroperitoneal inflammatory changes with some progressive mild reactive periaortic lymph nodes. Additional radiology was consulted to assist with drainage of the intrapelvic fluid collection, but they have declined to perform the procedure as they do not feel that the benefits of doing so outweigh the risks. Today, the patient's white blood cell count is normal, but she does have bandemia. She has been afebrile tachycardia has resolved. She is currently on IV Cipro and Flagyl. We have been asked to evaluate and make further recommendations. My exam today, the patient endorses a history as stated above. She states that overall she feels about 50% better. She reported fevers, but denies any chills or rigors. Denies headache or neck pain. Denies congestion, earache, or sore throat. Denied chest pain, shortness of breath, or cough. Denied nausea or vomiting or diarrhea prior to admission, but states she has had some loose stools since being here. She reported some light brown vaginal discharge after her procedure that persisted, but states that this has resolved as well. She states she no longer had abdominal pain. She states her appetite has been good. She denies any oral thrush or skin lesions. She denies any dysuria, urinary frequency, or trouble starting her urine stream. The patient states she was at home with her fiance. She does not work outside the home. Is sexually active with 1 male partner in the past 12 months. She denies any known chronic infection issue such as HIV, hepatitis, or tuberculosis. She smokes about half a pack of cigarettes per day. She denies any alcohol or illicit drug use. CC: Kitty Castellano MD Past Med Surg Social Fam HX - Past Medical History Attestation: Yes The following information was validated with the patient. Source: patient, old records reviewed, nursing notes reviewed Medical history: arthritis, diabetes, GERD, hyperlipidemia, hypertension, migraine, other Additional medical history: depression,baretts esophagus,schinic sinusitis, constipation,osteoarthritis,internal hemorrhoids,restless leg syndrome,dysphagia ,nausea,chronic pelvic pain,left lower quadrant pain,abnormal uterine bleeding, degenerative joint disease,dyslipedemia,iron deficiency,colonic polyps, bilateral carpal tunnel,borderline diabetes, diabetes type II, heart cath no stents Psychiatric history: anxiety, bipolar, depression - Past Surgical History Surgical History: appendectomy (open), cholecystectomy (lap), other (LEEP, tubal ligation) - Social History Smoking Status: Current every day smoker Packs per day: .5 Smokeless Tobacco Status: No Alcohol use: none Drug use: none Occupational status: unemployed Current living situation: Home - Independent Activity Level: Independent ambulation Recent Out of Country Travel Within the Last 8 Weeks: No Exposure or Possible Exposure to Illness During Travel: No - Family History Grandmother History Unknown: Yes Infectious Disease-CN:Meds Aspirin 81 mg PO DAILY 06/22/15 [History] Isosorbide MONOnitrate (24 HR) [Imdur] 30 mg PO DAILY 06/22/15 [History] Simvastatin [Zocor] 40 mg PO HS 06/22/15 [History] Albuterol Sulfate [Proair Hfa] 2 puff IH Q4H PRN 01/28/16 [History] Amitriptyline [Elavil] 25 - 50 mg PO HS 01/28/16 [History] Ascorbic Acid [Vitamin C] 250 mg PO BID 01/28/16 [History] Butalb/Acetaminophen/Caffeine [Zebutal 50-325-40 mg Capsule] 1 cap PO Q8H PRN [History] Cyclobenzaprine HCl 10 mg PO TID PRN 01/28/16 [History] Divalproex Sodium [Depakote] 250 mg PO BID 01/28/16 [History] Docusate [Colace] 100 mg PO BID PRN 01/28/16 [History] Ipratropium [ATROVENT Inhaler] 2 puff IH Q6HR PRN 01/28/16 [History] Lactulose 15 gm PO DAILY PRN 01/28/16 [History] Meclizine [Antivert] 25 mg PO BID PRN 01/28/16 [History] Metformin HCl [Glucophage] 1,000 mg PO BID 01/28/16 [History] Potassium Chloride 20 meq PO DAILY 01/28/16 [History] Ranolazine [Ranexa] 500 mg PO BID 01/28/16 [History] Ropinirole HCl [Requip] 0.5 - 1 mg PO HS 01/28/16 [History] SUMAtriptan Succinate [Imitrex] 100 mg PO ONCE PRN 01/28/16 [History] Topiramate [Topamax] 25 - 50 mg PO HS 01/28/16 [History] Wheat Dextrin [Benefiber] 1 each PO DAILY PRN 01/28/16 [History] Acetaminophen [Tylenol] 500 mg PO Q6HR PRN #20 tablet 03/23/17 [Rx] Promethazine [Phenergan] 12.5 mg PO Q8HR PRN #10 tablet 03/23/17 [Rx] Gabapentin [Neurontin] 300 mg PO TID 08/07/17 [History] Ibuprofen [Motrin] 600 mg PO Q8H PRN 08/07/17 [History] Loratadine [Claritin] 10 mg PO DAILY 08/07/17 [History] Metoprolol [Lopressor] 12.5 mg PO BID 08/07/17 [History] Omeprazole [PriLOSEC] 40 mg PO DAILY 08/07/17 [History] Polyethylene Glycol 3350 [MiraLAX] 17 gm PO DAILY 08/07/17 [History] Ferrous Sulfate [Iron] 325 mg PO DAILY 08/13/17 [History] Lisinopril [Zestril] 10 mg PO DAILY 08/13/17 [History] 3 Allergy/AdvReac Type Severity Reaction Status Date / Time losartan AdvReac Hives Verified 08/13/17 15:16 Oxycodone [From OxyContin] AdvReac Nausea Verified 08/13/17 15:16 Penicillins [PCN] AdvReac Swelling Verified 08/13/17 15:16 of the Eye All systems: reviewed and no additional remarkable complaints except as stated Exam - Constitutional Vitals: Temp Pulse Resp BP Pulse Ox 98.1 F 83 15 163/83 96 08/17/17 10:18 08/17/17 10:18 08/17/17 10:18 08/17/17 10:18 08/17/17 10:18 General appearance: cooperative, no acute distress, obese - Head Head exam: Present: atraumatic, normal inspection, normocephalic - Eye Eye exam: Present: EOMI, normal appearance, PERRL Pupils: Present: normal accommodation - ENT ENT exam: Present: mucous membranes moist - Neck Neck exam: Present: normal inspection - Respiratory Respiratory exam: Present: CTAB. Absent: rales, respiratory distress, rhonchi, wheezes - Cardiovascular Cardiovascular exam: Present: RRR, +S1, +S2 - GI/Abdominal GI/Abdominal exam: Present: distended (obese), normal bowel sounds, soft. Absent: tenderness - Extremities Exam Extremities exam: Present: normal inspection. Absent: joint swelling, pedal edema, tenderness - Back Exam Back exam: Present: normal inspection. Absent: paraspinal tenderness, vertebral tenderness - Neurological Exam Neurological exam: Present: alert, oriented X3, no focal deficits - Psychiatric Psychiatric exam: Present: normal affect, normal mood - Skin Skin exam: Present: dry, intact, normal color, warm Infectious Disease CN: Results - Labs CBC & Chem 7: 08/17/17 03:32 08/17/17 03:32 - VTE Documentation of Mechanical Device: Intermittent pneumatic compression device Consult Discharge Plan - Plan Additional Instructions: Take your antibiotics as directed. Do not stop antibiotics until recommended to do so from your provider. Referrals: Kitty Castellano MD [Partnered Physician] - (want to see next mon or Web request entered. Office will call with appointment.) Dixon Polk MD [Primary Care Provider] - 08/24/17 9:45 am Roseline Brock MD [Partnered Physician] - (as directed) - Attending Attestation I examined this patient and my medical decision-making was reviewed with the Resident Physician. I agree with the documented findings, disposition and treatment plan as described except to the extent set forth below. This is an addendum to original report dictated by Arlin Flannery CNP. Please refer to Arlin's consult for full detail. Patient is a 46-year-old woman with past medical history mentioned below apparently had a LEEP procedure and the started having brownish drainage from her vagina and was having a lot of pelvic pain. Patient came in to the hospital for evaluation. Patient presents with a very complicated clinical picture. Patient has a fluid collection that is in the pelvic area about 4.7 cm in diameter. I did review the CAT scan myself and then I discussed that with the radiologist there is air-fluid level and there is some air wall of the fluid collection concerning for abscess. Was also question for a rectovaginal fistula. Initially radiology recommended doing a CT with a retrograde contrast from the rectum. Patient did not want any procedures done and she was adamant that she wants to go home today. I actually went into the patient's room with Dr. Castellano and nursing staff and we had a very long discussion regarding treatment options. I explained to her the IV antibiotics To have better outcomes. Patient stated that she will only go home on oral antibiotics and she wants to go home today. Dr. Castellano explained to her that if we do not do things adequately this time did not infection might get worse and she might need a very complicated surgery and colostomy. Patient still insisted on going home. Under the circumstances we decided to discharge the patient home on oral Levaquin, Flagyl and Diflucan. Patient needs to repeat CT abdomen and pelvis with oral contrast on 08/31/2017. Patient to follow-up with me in clinic on 09/06 Patient scheduled follow-up with Dr. Castellano next week. Questions answered and concerns addressed and prescriptions were written by me.
[2017-08-17 14:14] VITALS: BP 152/76
[2017-08-17] MEDS ORDERED: Dextrose Gel 15 GM/37.5 ML TUBE PO PRN ×2 (16:38)
[2017-08-17] MEDS ORDERED: D5% in Water 1,000 ML IVC PRN (16:38)
[2017-08-17] MEDS ORDERED: *HR* Dextrose 50 % in Water (Syg) 50 ML SYRINGE IVP PRN (16:38)
[2017-08-17] MEDS ORDERED: Insulin LISPRO 300 UNITS/3 ML VIAL SQ SCH (21:00)
[2017-08-18] MEDS ORDERED: Insulin LISPRO 300 UNITS/3 ML VIAL SQ SCH (07:30)
== END 2017-08-17 19:56 | disposition home or self-care (01) | DRG 720 ==
LOC: EMEROO 18:25 → 3ANU 18:25
PROVIDERS: ADMIT Surgery; ATTEND Surgery